=== PATIENT | male | born 1965 | race Caucasian/White ===

== ENCOUNTER 2024-03-02 14:52 | Outpatient (AMB) | payer OTHER, SELFPAY ==
--- NOTE | 2024-03-02 15:01 | A.OFFPC_ITS ---
Vital Signs 03/02/24 15:12 Height 6 ft 0.05 in Weight 348 lb 2 oz BMI 47.1 BP 132/68 Blood Pressure Location Rt brachial Position Sitting Respiration 16 Pulse 77 Pulse Source Pulse Oximeter Temp 98.6 F Temp Source Oral Pulse Oximetry (%) 96 Oxygen Delivery Method Room Air Intake Visit Reasons: SHIRIN from [facility] Intake Note: New patient visit Allergies naproxen Allergy (Severe, Verified 03/02/24 15:09) Anaphylaxis Medication List - Last Reconciled 03/02/24 by Farideh Salomon PA-C apixaban (Eliquis) 2.5 mg PO BID omeprazole 20 mg PO DAILY oxycodone 10 mg PO Q6H 28 days Tobacco use date assessed: 03/02/24 Dental Screening Dental Screen Date: 03/02/24 Did you have a dental visit in the last 12 months?: No Did you have a dental problem in the last 6 months where you did not have access to dental care?: No Was dental information given to patient?: Patient has dentist HPI SHIRIN from [facility] HPI Details Patient is a 59-year-old male who presents today to [facility]. He is transferring from [facility]. He has a significant past medical history of chronic pain, GERD, prehypertension, chronic anticoagulation, and prediabetes. He has no acute concerns today but recently did have his right knee replaced. Musculoskeletal: States that FRITZ has been continuing his controlled substance contract since he transferred from [facility] and they did his surgery. He states that [facility] was uncomfortable continuing his regimen after her doing it for a few months. He was started on this regimen of oxycodone 10 mg 4 times a day years ago by Dr. Mcnair. He was transferred to or as the patient once she left the practice. He states that now that his knee is replaced he would like to consider tapering off of this medication but his surgery was just a few weeks ago. -his lower legs have been a little swoll en since the hospitalization but have gotten better. He states that his socks indent in his feet feel a little puffy. No leg pain. No increased erythema. Compliant with his Eliquis. Endo: He states that while he was hospitalized his blood sugars were WNL. His last A1c was 6. Colonoscopy: did the registration and has to schedule this this fall. [facility] Medical History (Updated 03/02/24 @ 16:29 by Farideh Salomon PA-C) Trigger finger Severe obesity Rotator cuff syndrome Prothrombin gene mutation Prehypertension Prediabetes Paresthesia Osteoarthritis of acromioclavicular joint Obstructive sleep apnea syndrome Obesity Hypercoagulable state Hx of pulmonary embolus H/O deep venous thrombosis Gastroesophageal reflux disease Disorder of rotator cuff Concussion injury of body structure Chronic pain Surgical History (Updated 03/02/24 @ 15:36 by Gali Lewis CMA) Hx of arthroscopy of right knee Hx of eye surgery H/O excision of ganglion cyst Hx of shoulder surgery Hx of total knee replacement Family History (Updated 03/02/24 @ 15:38 by Gali Lewis CMA) Father Hx of CABG Heart attack Brother Peripheral vascular disease Recurrent deep vein thrombosis Social History (Updated 03/02/24 @ 15:38 by Gali Lewis CMA) Housing: House Patient Tobacco Use Status: Never used Tobacco e-Cigarette/Vaping Use: Never Used Second Hand Smoke Exposure: No service: Yes Current occupational status: disabled Cognitive needs: No Hearing needs: No Vision needs: Yes (glasses) Questionnaire PHQ-9 Over the last 2 weeks, how often have you been bothered by any of the following problems? 1. Little interest or pleasure in doing things: not at all 2. Feeling down, depressed, or hopeless: not at all 3. Trouble falling or staying asleep, or sleeping too much: not at all 4. Feeling tired or having little energy: not at all 5. Poor appetite or overeating: not at all 6. Feeling bad about yourself - or that you are a failure or have let yourself or your family down: not at all 7. Trouble concentrating on things, such as reading the newspaper or watching television: not at all 8. Moving or speaking so slowly that other people could have noticed. Or the opposite - being so fidgety or restless that you have been moving around a lot more than usual: not at all 9. Thoughts that you would be better off or of hurting yourself in some way: not at all Total score: 0 Depression Screening Interpretation: Negative Depression Screening Done: Yes 88182 - PHQ-9 Billing: Yes Source: Developed by Drs. Dano Dias, Radha MitchellSergey and colleagues, with an educational xander from [employer]. Thrive Questionnaire Date Thrive assessed: 03/02/24 I am a: Patient What is your living situation today?: I have a steady place to live Within the past 12 months, did the food you bought not last and you didn't have the money to get more?: Never true Within the past 12 months, did you worry whether your food would run out before you got money to buy more?: Never true Do you have trouble paying for medicines?: No Do you have trouble getting transportation to medical appointments?: No Do you have trouble paying your heating and electricity bill?: No Do you have trouble taking care of your child, family member or friend?: No Do you have trouble with day-to-day activities such as bathing, preparing meals, shopping, managing finances, etc.?: No Are you currently unemployed and looking for a job?: No Are you interested in more education?: No Please select the resources that you would like help with: None Currently or been in a relationship where the following occur: No concerns reported THRIVE Score: 0 AUDIT C Alcohol Use Questionnaire (AUDIT-C) 1. How often do you have a drink containing alcohol?: Monthly or less 2. How many drinks containing alcohol do you have on a typical day when you are drinking?: 1 or 2 Total Score: 1 Score Reviewed/Action Taken: Yes MARY-7 AMB Questionnaire MARY-7 Date MARY - 7 assessed: 03/02/24 Feeling nervous, anxious, or on edge: 0 = Not at all Not being able to stop or control worryin = Not at all Worrying too much about different things: 0 = Not at all Trouble relaxin = Not at all Being so restless that it is hard to sit still: 0 = Not at all Becoming easily annoyed or irritable: 0 = Not at all Feeling afraid as if something awful might happen: 0 = Not at all Total MARY-7 score (0-4 normal; 5-9 mild; 10-14 moderate; 15-21 severe): 0 Source: Developed by Drs. Dano Dias, Radha Mitchell, Sergey Pereyra and colleagues, with an educational xander from [employer]. MARY-7 Assessment Billing MARY-7 Assessment Tool: MARY-7 Assessment 77582 Physical exam (Primary Care) Vital Signs: Last Vital Signs Temp 98.6 F 03/02/24 15:12 Pulse 77 03/02/24 15:12 Resp 16 03/02/24 15:12 BP 132/68 03/02/24 15:12 Pulse Ox 96 03/02/24 15:12 Oxygen Delivery Method Room Air 03/02/24 15:12 BMI result Body Mass Index 47.1 BMI Assessment/Plan discussion: High BMI High, discussed plan: lifestyle, weight reduction and dietary Tobacco/Smoking Status: Tobacco use Status Tobacco use date assessed 03/02/24 03/02/24 15:17 Patient Tobacco Use Status Never used Tobacco 03/02/24 15:38 e-Cigarette/Vaping Use Never Used 03/02/24 15:38 PHQ-9: PHQ-9 Score PHQ-9: Total score 0 03/02/24 15:40 Depression Screening Interpretation: Negative Thrive Assessment: Date of Thrive Assessment Date Thrive assessed 03/02/24 03/02/24 15:40 Currently or been in a relationship where the following occur: No concerns reported Const Orientation/consciousness: patient oriented x3 HENMT Ears: hearing grossly normal bilaterally Neck Thyroid: Thyroid normal Lymphatic: no lymphadenopathy noted Resp Auscultation: clear to auscultation bilaterally Cardio Rate: regular rate Rhythm: regular rhythm Heart sounds: S1 normal heart sound present and S2 normal heart sound present GI Inspection: Yes normal to inspection Palpation (GI): Soft to palpation and Other GI palpation findings present (nontender, no cva tenderness) Skin General skin exam: no rashes or lesions noted Neuro General: patient oriented x3, gait normal and no focal motor deficits Extrem Other: 2+ pitting edema noted over the bilateral ankles. Calves nontender bilaterally. Assessment and Plan Assessment & Plan (1) Chronic pain: Code(s): G89.29 - Other chronic pain Qualifiers: Chronic pain type: chronic pain syndrome Qualified Code(s): G89.4 - Chronic pain syndrome Plan: We will continue current CSC. (2) Hypercoagulable state: Code(s): D68.59 - Other primary thrombophilia Plan: Continue Eliquis (3) Prediabetes: Code(s): R73.03 - Prediabetes Plan: Labs ordered. We will monitor. Discussed dietary changes. Advised to limit carbohydrate and sugar intake. (4) Prehypertension: Code(s): R03.0 - Elevated blood-pressure reading, without diagnosis of hypertension Plan: We will continue to monitor. (5) Lower leg edema: Code(s): R60.0 - Localized edema Plan: We will trial a short course of furosemide. We discussed risks and benefits and adverse effects of this medication. Orders: Orders Comprehensive [place]. Panel Fast Today D68.59 - Other primary thrombophilia, R03.0 - Elevated blood-pressure reading, without diagnosis of hypertension, R73.03 - Prediabetes Liver Panel Today D68.59 - Other primary thrombophilia, R03.0 - Elevated blood- pressure reading, without diagnosis of hypertension, R73.03 - Prediabetes, R79.89 - Other specified abnormal findings of blood chemistry TSH reflex Free T4 Today D68.59 - Other primary thrombophilia, R03.0 - Elevated blood-pressure reading, without diagnosis of hypertension, R73.03 - Prediabetes Hemoglobin A1c Today D68.59 - Other primary thrombophilia, R03.0 - Elevated blood-pressure reading, without diagnosis of hypertension, R73.03 - Prediabetes PSA, Ultra Sensitive Today D68.59 - Other primary thrombophilia, R03.0 - Elevated blood-pressure reading, without diagnosis of hypertension, R06.09 - Other forms of dyspnea, R73.03 - Prediabetes Medications: New oxycodone 10 mg PO Q6H 28 days 112 tabs 0RF G89.29 - Other chronic pain furosemide 20 mg PO DAILY 7 tabs 0RF Coding Level of Care Code Est Pt Level 4 (16304) Complex EM visit Add On G2211 Diagnoses Chronic pain syndrome G89.4 Chronic pain type: chronic pain syndrome Hypercoagulable state D68.59 Prediabetes R73.03 Prehypertension R03.0 Lower leg edema R60.0 Additional Codes MARY-7 Assessment Billing - MARY-7 Assessment Tool: MARY-7 Assessment [id number] ([id number])
[2024-03-02 15:12] VITALS: BP 132/68; PULSE 77; RESP 16; TEMP 37; O2SAT 96; BMI 47.1
== END 2024-03-02 16:12 | disposition home or self-care (01) ==
PROVIDERS: Visit Provider Physician Assistant
DX: G89.4 Chronic pain syndrome (principal); D68.59 Other primary thrombophilia; R73.03 Prediabetes; R03.0 Elevated blood-pressure reading, without diagnosis of hypertension; R60.0 Localized edema
CPT/HCPCS: 99214; G2211

== ENCOUNTER 2024-03-03 08:43 | Outpatient (REF) | payer OTHER, SELFPAY ==
[2024-03-03 11:43] LABS: Estimated Average Glucose 117 mg/dL; Hemoglobin A1c % 5.7 % (<6.0)
[2024-03-03 12:13] LABS: Alanine Aminotransferase 15 U/L (0-40); Alkaline Phosphatase 75 U/L (39-117); Anion Gap 12 (12-20); Aspartate Amino Transferase 15 U/L (5-37); Bilirubin Direct 0.2 mg/dL (0.0-0.5); Bilirubin Total 0.8 mg/dL (0.0-1.0); Blood Urea Nitrogen 26 mg/dL (9-16); Carbon Dioxide 26 mmol/L (22-29); Chloride 105 mmol/L (96-108); Estimated Glomerular Filt Rate > 60; Glucose Fasting 111 mg/dL (60-99); Potassium 4.1 mmol/L (3.3-5.1); Sodium 139 mmol/L (135-145); TSH reflex Free T4 2.18 uIU/mL (0.32-4.0); Total Protein 6.6 g/dL (6.5-8.0)
[2024-03-15 18:42] LABS: PSA, Ultra Sensitive 1.38 ng/mL
== END 2024-03-03 08:44 | disposition home or self-care (01) ==
LOC: HO.WFDLDS 08:43
PROVIDERS: Visit Provider Physician Assistant
DX: R73.03 Prediabetes (principal); R03.0 Elevated blood-pressure reading, without diagnosis of hypertension; D68.59 Other primary thrombophilia; R79.89 Other specified abnormal findings of blood chemistry; R06.09 Other forms of dyspnea; Z12.5 Encounter for screening for malignant neoplasm of prostate
CPT/HCPCS: 36415; 80053; 80076; 82248; 83036; 84153; 84443

== ENCOUNTER 2024-05-19 10:05 | Outpatient (AMB) | payer OTHER, SELFPAY ==
[2024-05-19 10:12] VITALS: BP 144/82; PULSE 72; O2SAT 99; BMI 46.7
--- NOTE | 2024-05-19 10:12 | A.OFFPC_ITS ---
Vital Signs 05/19/24 10:12 05/19/24 10:21 Height 6 ft 0.5 in Weight 349 lb BMI 46.7 BP 144/82 H 122/80 Blood Pressure Location Lt brachial Lt brachial Position Sitting Sitting Pulse 72 Pulse Source Pulse Oximeter Pulse Oximetry (%) 99 Oxygen Delivery Method Room Air Int[place] [facility] [place] Note: Follow up Regional Clinical Research Associate Required: No Allergies naproxen Allergy (Severe, Verified 05/19/24 10:12) Anaphylaxis Medication List - Last Reconciled 05/19/24 by Farideh Salomon PA-C apixaban (Eliquis) 2.5 mg PO BID 90 days furosemide 20 mg PO DAILY omeprazole 20 mg PO DAILY oxycodone 10 mg PO Q6H 28 days Tobacco use date assessed: 03/02/24 Dental Screening Dental Screen Date: 03/02/24 [place] [facility] [place]PI Details Patient is a 59-year-old male who presents today for a follow up. He has a significant past medical history of chronic pain, GERD, prehypertension, chronic anticoagulation, and prediabetes. He has no acute concerns today but recently did have his right knee replaced. He has been more active. CV: Blood pressure today in the office is 122/80. He has had his prehypertension and has tried to control it with diet. No chest pain or shortness on breath. Compliant with Eliquis. -He sees his chiropractor every 2 weeks and has his bp checked. Musculoskeletal: His knee is feeling better since his replacement. He is well managed with his current chronic pain management. He has been on this prescription and dosage for years. Endo: He states that while he was hospitalized his blood sugars were WNL. His last A1c was 5.7. Colonoscopy: did the registration and has to schedule this. [facility] Medical History (Updated 03/02/24 @ 16:29 by Farideh Salomon PA-C) Trigger finger Severe obesity Rotator cuff syndrome Prothrombin gene mutation Prehypertension Prediabetes Paresthesia Osteoarthritis of acromioclavicular joint Obstructive sleep apnea syndrome Obesity Hypercoagulable state Hx of pulmonary embolus H/O deep venous thrombosis Gastroesophageal reflux disease Disorder of rotator cuff Concussion injury of body structure Chronic pain Surgical History (Updated 03/02/24 @ 15:36 by Gali Lewis CMA) Hx of arthroscopy of right knee Hx of eye surgery H/O excision of ganglion cyst Hx of shoulder surgery Hx of total knee replacement Family History (Updated 03/02/24 @ 15:38 by Gali Lewis CMA) Father Hx of CABG Heart attack Brother Peripheral vascular disease Recurrent deep vein thrombosis Social History (Updated 03/02/24 @ 15:38 by Gali Lewis CMA) Housing: House Patient Tobacco Use Status: Never used Tobacco e-Cigarette/Vaping Use: Never Used Second Hand Smoke Exposure: No service: Yes Current occupational status: disabled Cognitive needs: No Hearing needs: No Vision needs: Yes (glasses) Questionnaire PHQ-9 Over the last 2 weeks, how often have you been bothered by any of the following problems? 1. Little interest or pleasure in doing things: not at all 2. Feeling down, depressed, or hopeless: not at all 3. Trouble falling or staying asleep, or sleeping too much: not at all 4. Feeling tired or having little energy: not at all 5. Poor appetite or overeating: not at all 6. Feeling bad about yourself - or that you are a failure or have let yourself or your family down: not at all 7. Trouble concentrating on things, such as reading the newspaper or watching television: not at all 8. Moving or speaking so slowly that other people could have noticed. Or the opposite - being so fidgety or restless that you have been moving around a lot more than usual: not at all 9. Thoughts that you would be better off or of hurting yourself in some way: not at all Total score: 0 Source: Developed by Drs. Dano Dias, Radha Mitchell, Sergey Pereyra and colleagues, with an educational xander from [employer]. Thrive Questionnaire Date Thrive assessed: 03/02/24 I am a: Patient What is your living situation today?: I have a steady place to live Within the past 12 months, did the food you bought not last and you didn't have the money to get more?: Never true Within the past 12 months, did you worry whether your food would run out before you got money to buy more?: Never true Do you have trouble paying for medicines?: No Do you have trouble getting transportation to medical appointments?: No Do you have trouble paying your heating and electricity bill?: No Do you have trouble taking care of your child, family member or friend?: No Do you have trouble with day-to-day activities such as bathing, preparing meals, shopping, managing finances, etc.?: No Are you currently unemployed and looking for a job?: No Are you interested in more education?: No Please select the resources that you would like help with: None Currently or been in a relationship where the following occur: No concerns reported THRIVE Score: 0 AUDIT C Alcohol Use Questionnaire (AUDIT-C) 1. How often do you have a drink containing alcohol?: Monthly or less 2. How many drinks containing alcohol do you have on a typical day when you are drinking?: 1 or 2 3. How often do you have six or more drinks on one occasion?: Never Total Score: 1 MARY-7 AMB Questionnaire MARY-7 Date MARY - 7 assessed: 03/02/24 Feeling nervous, anxious, or on edge: 0 = Not at all Not being able to stop or control worryin = Not at all Worrying too much about different things: 0 = Not at all Trouble relaxin = Not at all Being so restless that it is hard to sit still: 0 = Not at all Becoming easily annoyed or irritable: 0 = Not at all Feeling afraid as if something awful might happen: 0 = Not at all Total MARY-7 score (0-4 normal; 5-9 mild; 10-14 moderate; 15-21 severe): 0 Source: Developed by Drs. Dano Dias, Radha Mitchell, Sergey Pereyra and colleagues, with an educational xander from [employer]. Physical exam (Primary Care) Tobacco/Smoking Status: Tobacco use Status Tobacco use date assessed 03/02/24 03/02/24 15:17 Patient Tobacco Use Status Never used Tobacco 03/02/24 15:38 e-Cigarette/Vaping Use Never Used 03/02/24 15:38 Thrive Assessment: Date of Thrive Assessment Date Thrive assessed 03/02/24 03/02/24 15:40 Currently or been in a relationship where the following occur: No concerns reported Const Orientation/consciousness: patient oriented x3 HENMT Ears: hearing grossly normal bilaterally Neck Thyroid: Thyroid normal Lymphatic: no lymphadenopathy noted Resp Auscultation: clear to auscultation bilaterally Cardio Rate: regular rate Rhythm: regular rhythm Heart sounds: S1 normal heart sound present and S2 normal heart sound present GI Inspection: Yes normal to inspection Palpation (GI): Soft to palpation and Other GI palpation findings present (nontender, no cva tenderness) Auscultation: normoactive bowel sounds Rectal Exam - Male: Yes deferred Skin General skin exam: no rashes or lesions noted Neuro General: patient oriented x3, gait normal and no focal motor deficits Results Reviewed Results Reviewed: Laboratory Tests 03/03/24 08:46 Sodium 139 Potassium 4.1 Chloride 105 Carbon Dioxide 26 Anion Gap 12 BUN 26 H Creatinine 0.93 Estimated GFR > 60 Fasting Glucose 111 H Estimat Average Glucose 117 Hemoglobin A1c % 5.7 Calcium 9.0 Total Bilirubin 0.8 Direct Bilirubin 0.2 AST 15 ALT 15 Alkaline Phosphatase 75 Total Protein 6.6 Albumin 4.0 PSA Ultra-Sensitive 1.38 TSH 2.18 Coding Level of Care Code Est Pt Level 4 (88614) Complex EM visit Add On G2211 Diagnoses Hypercoagulable state D68.59 Prehypertension R03.0 Prediabetes R73.03 Chronic pain syndrome G89.4 Chronic pain type: chronic pain syndrome Assessment & Plan Assessment & Plan (1) Hypercoagulable state: Code(s): D68.59 - Other primary thrombophilia Category: Medical Plan: Continue on Eliquis (2) Prehypertension: Code(s): R03.0 - Elevated blood-pressure reading, without diagnosis of hypertension Category: Medical Plan: We will continue to monitor. Patient states that the weight is coming down now that he can move around more since getting his knee replaced. We did discuss possibly starting Wegovy to help him lose weight but he wants to wait on this. (3) Prediabetes: Code(s): R73.03 - Prediabetes Category: Medical Plan: A1c improved. (4) Chronic pain: Code(s): G89.29 - Other chronic pain Category: Medical Qualifiers: Chronic pain type: chronic pain syndrome Qualified Code(s): G89.4 - Chronic pain syndrome Plan: Continue oxycodone. Controlled substance contract signed today. Orders: Orders Lipid Panel Today D68.59 - Other primary thrombophilia, G89.4 - Chronic pain syndrome, R03.0 - Elevated blood-pressure reading, without diagnosis of hypertension, R73.03 - Prediabetes Complete Blood Count Auto Diff Today D68.59 - Other primary thrombophilia, G89.4 - Chronic pain syndrome, R03.0 - Elevated blood-pressure reading, without diagnosis of hypertension, R73.03 - Prediabetes Microalbumin, Random (w Creat) Today R03.0 - Elevated blood-pressure reading, without diagnosis of hypertension, R73.03 - Prediabetes Comprehensive [place]. Panel Fast Today D68.59 - Other primary thrombophilia, G89.4 - Chronic pain syndrome, R03.0 - Elevated blood-pressure reading, without diagnosis of hypertension, R73.03 - Prediabetes Hemoglobin A1c Today D68.59 - Other primary thrombophilia, G89.4 - Chronic pain syndrome, R03.0 - Elevated blood-pressure reading, without diagnosis of hypertension, R73.03 - Prediabetes
[2024-05-19 10:21] VITALS: BP 122/80
== END 2024-05-19 10:34 | disposition home or self-care (01) ==
PROVIDERS: Visit Provider Physician Assistant
DX: D68.59 Other primary thrombophilia (principal); R03.0 Elevated blood-pressure reading, without diagnosis of hypertension; R73.03 Prediabetes; G89.4 Chronic pain syndrome

== ENCOUNTER → 2024-05-19 10:05 | Outpatient (BNVA) | payer OTHER, SELFPAY | PROVIDERS: Visit Provider Physician Assistant | DX: D68.59 Other primary thrombophilia (principal); R03.0 Elevated blood-pressure reading, without diagnosis of hypertension; R73.03 Prediabetes; G89.4 Chronic pain syndrome | CPT/HCPCS: 99212 ==

== ENCOUNTER 2024-08-25 08:49 | Outpatient (AMB) | payer OTHER, SELFPAY ==
--- NOTE | 2024-08-25 09:02 | MHC.PC.OV ---
Vital Signs 08/25/24 09:07 Height 6 ft 0.5 in Weight 351 lb 6 oz BMI 47.0 BP 122/72 Blood Pressure Location Lt brachial Position Sitting Pulse 71 Pulse Source Pulse Oximeter Pulse Oximetry (%) 97 Oxygen Delivery Method Room Air Intake Visit Reasons: bp and prediabetes and csc Intake Note: Blood pressure follow up. Order Department Supervisor Required: No Allergies naproxen Allergy (Severe, Verified 08/25/24 09:05) Anaphylaxis Medication List - Last Reconciled 08/25/24 by Farideh Salomon PA-C amoxicillin 2,000 mg (4 x 500 mg) PO ONCE PRN 90 days apixaban (Eliquis) 2.5 mg PO BID 90 days celecoxib 200 mg PO DAILY furosemide 20 mg PO DAILY omeprazole 20 mg PO DAILY oxycodone 10 mg PO Q6H 28 days Tobacco use date assessed: 08/25/24 Dental Screening Dental Screen Date: 03/02/24 HPI bp and prediabetes and csc HPI Details Patient is a 59-year-old male who presents today for a follow up. He has a significant past medical history of chronic pain, GERD, prehypertension, chronic anticoagulation, royal on cpap and prediabetes. CV: Blood pressure today in the office is 122/72. He has had his prehypertension and has tried to control it with diet. No chest pain or shortness on breath. Compliant with Eliquis. -He sees his chiropractor every 2 weeks and has his bp checked. Musculoskeletal: His knee is feeling better since his right replacement. He is well managed with his current chronic pain management. He has been on this prescription and dosage for years. Contract signed today. Endo: His A1c today is 6.2. Colonoscopy: He is scheduled for this [facility] Medical History (Updated 08/25/24 @ 09:23 by Farideh Salomon PA-C) Trigger finger Severe obesity Rotator cuff syndrome Prothrombin gene mutation Prehypertension Prediabetes Paresthesia Osteoarthritis of acromioclavicular joint Obstructive sleep apnea syndrome Obesity Hypercoagulable state Hx of pulmonary embolus H/O deep venous thrombosis Gastroesophageal reflux disease Disorder of rotator cuff Concussion injury of body structure Chronic pain Surgical History (Updated 03/02/24 @ 15:36 by Gali Lewis CMA) Hx of arthroscopy of right knee Hx of eye surgery H/O excision of ganglion cyst Hx of shoulder surgery Hx of total knee replacement Family History (Updated 03/02/24 @ 15:38 by Gali Lewis CMA) Father Hx of CABG Heart attack Brother Peripheral vascular disease Recurrent deep vein thrombosis Social History (Updated 03/02/24 @ 15:38 by Gali Lewis CMA) Housing: House Patient Tobacco Use Status: Never used Tobacco e-Cigarette/Vaping Use: Never Used Second Hand Smoke Exposure: No service: Yes Current occupational status: disabled Cognitive needs: No Hearing needs: No Vision needs: Yes (glasses) Questionnaire PHQ-9 Over the last 2 weeks, how often have you been bothered by any of the following problems? 1. Little interest or pleasure in doing things: not at all 2. Feeling down, depressed, or hopeless: not at all 3. Trouble falling or staying asleep, or sleeping too much: not at all 4. Feeling tired or having little energy: not at all 5. Poor appetite or overeating: not at all 6. Feeling bad about yourself - or that you are a failure or have let yourself or your family down: not at all 7. Trouble concentrating on things, such as reading the newspaper or watching television: not at all 8. Moving or speaking so slowly that other people could have noticed. Or the opposite - being so fidgety or restless that you have been moving around a lot more than usual: not at all 9. Thoughts that you would be better off or of hurting yourself in some way: not at all Total score: 0 Depression Screening Interpretation: Negative Depression Screening Done: Yes 13385 - PHQ-9 Billing: Yes Source: Developed by Drs. Dano Dias, Radha Mitchell, Sergey Pereyra and colleagues, with an educational xander from [employer]. Thrive Questionnaire Date Thrive assessed: 08/18/24 I am a: Patient What is your living situation today?: I have a steady place to live Within the past 12 months, did the food you bought not last and you didn't have the money to get more?: Never true Within the past 12 months, did you worry whether your food would run out before you got money to buy more?: Never true Do you have trouble paying for medicines?: No Do you have trouble getting transportation to medical appointments?: No Do you have trouble paying your heating and electricity bill?: No Do you have trouble taking care of your child, family member or friend?: No Do you have trouble with day-to-day activities such as bathing, preparing meals, shopping, managing finances, etc.?: No Are you currently unemployed and looking for a job?: No Are you interested in more education?: No Please select the resources that you would like help with: None Currently or been in a relationship where the following occur: No concerns reported THRIVE Score: 0 AUDIT C Alcohol Use Questionnaire (AUDIT-C) 1. How often do you have a drink containing alcohol?: Monthly or less 2. How many drinks containing alcohol do you have on a typical day when you are drinking?: 1 or 2 3. How often do you have six or more drinks on one occasion?: Never Total Score: 1 Score Reviewed/Action Taken: Yes MARY-7 AMB Questionnaire MARY-7 Date MARY - 7 assessed: 03/02/24 Feeling nervous, anxious, or on edge: 0 = Not at all Not being able to stop or control worryin = Not at all Worrying too much about different things: 0 = Not at all Trouble relaxin = Not at all Being so restless that it is hard to sit still: 0 = Not at all Becoming easily annoyed or irritable: 0 = Not at all Feeling afraid as if something awful might happen: 0 = Not at all Total MARY-7 score (0-4 normal; 5-9 mild; 10-14 moderate; 15-21 severe): 0 Source: Developed by Drs. Daon Dias, Radha Mitchell, Sergey Pereyra and colleagues, with an educational xander from [employer]. MARY-7 Assessment Billing MARY-7 Assessment Tool: MARY-7 Assessment 19457 Physical exam (Primary Care) Vital Signs: Last Vital Signs Pulse 71 08/25/24 09:07 BP 122/72 08/25/24 09:07 Pulse Ox 97 08/25/24 09:07 Oxygen Delivery Method Room Air 08/25/24 09:07 BMI result Body Mass Index 47.0 Tobacco/Smoking Status: Tobacco use Status Tobacco use date assessed 08/25/24 08/25/24 09:14 Patient Tobacco Use Status Never used Tobacco 08/25/24 09:02 e-Cigarette/Vaping Use Never Used 08/25/24 09:02 PHQ-9: PHQ-9 Score PHQ-9: Total score 0 08/25/24 09:16 Depression Screening Interpretation: Negative Thrive Assessment: Date of Thrive Assessment Date Thrive assessed 08/18/24 08/25/24 09:02 Currently or been in a relationship where the following occur: No concerns reported Const Orientation/consciousness: patient oriented x3 HENMT Ears: hearing grossly normal bilaterally Neck Thyroid: Thyroid normal Lymphatic: no lymphadenopathy noted Resp Auscultation: clear to auscultation bilaterally Cardio Rate: regular rate Rhythm: regular rhythm Heart sounds: S1 normal heart sound present and S2 normal heart sound present GI Inspection: Yes normal to inspection Palpation (GI): Soft to palpation and Other GI palpation findings present (nontender, no cva tenderness) Auscultation: normoactive bowel sounds Rectal Exam - Male: Yes deferred Skin General skin exam: no rashes or lesions noted Neuro General: patient oriented x3, gait normal and no focal motor deficits Results Reviewed Results Reviewed: Laboratory Tests 03/03/24 08:46 Sodium 139 Potassium 4.1 Chloride 105 Carbon Dioxide 26 Anion Gap 12 Creatinine 0.93 Estimated GFR > 60 Estimat Average Glucose 117 Hemoglobin A1c % 5.7 Calcium 9.0 Total Bilirubin 0.8 Direct Bilirubin 0.2 AST 15 ALT 15 Alkaline Phosphatase 75 Total Protein 6.6 Albumin 4.0 PSA Ultra-Sensitive 1.38 TSH 2.18 Coding Level of Care Code Est Pt Level 4 (61622) Complex EM visit Add On G2211 Diagnoses ROYAL on CPAP G47.33 Hypercoagulable state D68.59 Prehypertension R03.0 Prediabetes R73.03 Chronic pain syndrome G89.4 Chronic pain type: chronic pain syndrome Additional Codes PHQ-9 - 40838 - PHQ-9 Billing: Yes ([id number]) MARY-7 Assessment Billing - MARY-7 Assessment Tool: MARY-7 Assessment 67787 ([id number]) Assessment & Plan Assessment & Plan (1) ROYAL on CPAP: Code(s): G47.33 - Obstructive sleep apnea (adult) (pediatric) Category: Medical Plan: Referral to sleep Medicine. He would like to discuss with someone a different type of sleep mask. (2) Hypercoagulable state: Code(s): D68.59 - Other primary thrombophilia Category: Medical Plan: Continue Eliquis (3) Prehypertension: Code(s): R03.0 - Elevated blood-pressure reading, without diagnosis of hypertension Category: Medical Plan: We will continue to monitor. He is working hard on diet and weight loss. We did discuss Wegovy at length today. He will let me know if he decides to try something like this. (4) Prediabetes: Code(s): R73.03 - Prediabetes Category: Medical Plan: We did discuss that his A1c increased and he is going to work on reducing carbohydrate and sugar intake. (5) Chronic pain: Code(s): G89.29 - Other chronic pain Category: Medical Qualifiers: Chronic pain type: chronic pain syndrome Qualified Code(s): G89.4 - Chronic pain syndrome Plan: Controlled substance contract signed. Orders: Referrals Sleep Medicine Referral G47.33 - Obstructive sleep apnea (adult) (pediatric)
[2024-08-25 09:07] VITALS: BP 122/72; PULSE 71; O2SAT 97; BMI 47.0
--- OUTSIDE RECORDS SUMMARY | 2024-08-25 09:16 | XMS_ITS | Continuity of Care Document ---
Author Organization [facility], [address] floor Address [address] [place] [address] Assessment No assessment recorded. Plan of Treatment Reminders Order Date Submit Date Provider Last Modified By Organization Details Last Modified Time Details Appointments NEW PATIENT 15 2024 09:00A M Babar Guerra MD Not available Not available Not available RECHECK 15 2024 11:00A Chandan Kumar PA-C Not available Not available Not available Lab None recorded . Referral None recorded . Procedures None recorded . Surgeries None recorded . Imaging None recorded . Medication Orders None recorded . Patient TargetsNo targets recorded. Patient InstructionsNo instructions recorded. Reason for Referral None Reported. Problems Name Problem SNOMED Code Status Onset Date Resolution Date Notes Provider Name and Address Organization Details Recorded Time Implantation of joint prosthesis Active 2012 Status : 'A'; Not Available [facility] 11[facility] Problem Notes None recorded. Procedures Surgical History Date Name Laterality Status Provider Name and Address Organization Details Recorded Time 5 Sports Shoulder 4&1 completed Russ Kumar PA-C [address], [place], [address], [facility] 08/18/2024 07:47:20 4 Sports Shoulder 4&1 completed Russ Kumar PA-C [address], [place], [address], [facility] 05/13/2024 14:35:50 4 Plantar Fascia Celestone Injection L/R completed Mai Freed PA-C [address], [place], [address], [facility] 11/12/2023 09:40:57 4 Sports Shoulder 4&1 completed Russ Kumar PA-C [address], [place], [address], [facility] 11/10/2023 18:50:18 Imaging Results None recorded. Procedure Notes None recorded. Medical Equipment None Reported. Allergies Allergen ID Allergen Name Allergen Category Reaction Reaction Severity Criticality Documentation Date Start Date Code Code System Note Provider Name and Address Organization Details Recorded Time 118115 naproxen medicatio n Not available Not available Not available 11/11/2023 7258 RxNorm KAYLIA L'HEUREUX [facility] 08:36:10 Medications Name Sig Start Date Stop Date Status Note LastModified by Organization Details LastModified Time celecoxib 200 mg capsule TAKE 1 CAPSULE BY MOUTH EVERY DAY active Not Available Not Available No t Available amoxicillin 500 mg tablet TAKE 4 TABLETS BY MOUTH ONCE NEEDED FOR DENTAL WORK ONE HOUR PRIOR TO PROCEDURE active Not Available Not Available No t Available lorazepam 0.5 mg tablet TAKE 1 TAB BY MOUTH ONCE NEEDED FOR ANXIETY (1 HOUR BEFORE FLYING & 2 HOURS AWAY FROM OXYCODONE ) active Not Available Not Available No t Available cephalexin 500 mg capsule TAKE 1 CAPSULE BY MOUTH FOUR TIMES A DAY FOR 10 DAYS 11/10 completed Not Available Not Available Not Available pseudoephed rine-guaife nesin ER 80-700 mg tablet,exte nded release Percocet 5-325MG Tablet 1-2 Q 4-6 Hours Prn 07/22 completed Statu s: 'Disc ontin ued'; Not Available Not Available Not Available polymyxin B sulfate 10,000 unit-trimet hoprim 1 mg/mL eye drops PLACE 1 DROP INTO THE LEFT EYE EVERY 6 HOURS FOR 7 DAYS. 11/10 completed Not Available Not Available Not Available docusate sodium 100 mg capsule TAKE 1 CAPSULE BY MOUTH TWO TIMES A DAY 05/26 completed Not Available Not Available Not Available gabapentin 300 mg capsule TAKE 1 CAPSULE BY MOUTH EVERY DAY AT BEDTIME FOR 30 DAYS active Not Available Not Available No t Available omeprazole 20 mg capsule,del ayed release TAKE 1 CAPSULE BY MOUTH EVERY DAY active Not Available Not Available No t Available mupirocin 2 % topical ointment APPLY 3 TIMES A DAY FOR 10 DAYS active Not Available Not Available No t Available furosemide 20 mg tablet 05/26 completed Not Available Not Available Not Available oxycodone 30 mg tablet TAKE 1/2 TO 1 TABLET BY MOUTH EVERY 4 HOURS NEEDED FOR PAIN 05/26 completed Not Available Not Available Not Available diazepam 10 mg tablet TAKE 1 TABLET BY MOUTH THREE TIMES A DAY FOR 7 DAYS 05/26 completed Not Available Not Available Not Available methylpredn isolone 4 mg tablets in a dose pack TAKE DIRECTED 11/10 completed Not Available Not Available Not Available hydromorpho ne 4 mg tablet TAKE 1 TABLET BY MOUTH EVERY 4 HOURS NEEDED FOR SEVERE PAIN 05/26 completed Not Available Not Available Not Available diazepam 5 mg tablet TAKE 1 TABLET BY MOUTH THREE TIMES A DAY NEEDED FOR MUSCLE SPASM 05/26 completed Not Available Not Available Not Available oxycodone 5 mg tablet TAKE 2 TABLETS BY MOUTH EVERY 6 HOURS NEEDED FOR PAIN 11/10 completed Not Available Not Available Not Available oxycodone 10 mg tablet TAKE 1 TABLET ORALLY EVERY 6 HOURS FOR 28 DAYS active Not Available Not Available No t Available oxycodone HCl-oxycodo ne-ASA as directed 1 TABLET Q 4 HOURS PRN PAIN DO NOT DIRVE WHILE ON THIS MED 07/22 completed Statu s: 'Disc ontin ued'; Not Available Not Available Not Available GaviLyte-G 236 gram-22.74 gram-6.74 gram-5.86 gram oral solution DRINK 8 OUNCES EVERY 10 MINUTES 05/26 completed Not Available Not Available Not Available Eliquis 2.5 mg tablet TAKE 1 TABLET BY MOUTH TWICE A DAY active Not Available Not Available No t Available Vitals Date Recorded Body height Provider Name an d Address Organization Details Last Updated DateTime 08/18/2024 182.88 cm DARIEL WEAVER [facility] 08/18/2024 08:53:28 Social History Question Answer Notes LastModified by Organizat ion Details LastModified Time Tobacco Smoking Status Never Smoker NOE gregory [place] - [place] [facility] 11/11/2023 08:37:15 What Is Your Level Of Alcohol Consumption? None Information not available 11/11/2023 What Is Your Relationship Status? [email or web address] Information not available 11/11/2023 Do You Use Any Illicit Or Recreational Drugs? No Information not available 11/11/2023 Do You Or Have You Ever Used Any Other Forms Of Tobacco Or Nicotine? No Information not available 11/11/2023 Sex: Unknown Functional Status None recorded. Mental Status None recorded. Family History Nothing Reported. Medical History Condition Response Coronary Artery Disease N Anxiety/Depression N Emphysema N COPD N Pacemaker N Vascular Disease N Gastrointestinal Disease N Autoimmune disease N Orthotics N Arthritis Y Blood Clot Y Acid Reflux (GERD) Y Cancer N Stroke N Rheumatoid Arthritis N Arrhythmia Y Fibromyalgia N Allergies/Hayfever N Thyroid Problems N Kidney/Bladder Problems N Anemia N Heart Attack (DC) N Diabetes N Bleeding Disorder N Seizures/Epilepsy N AIDS/HIV N Congestive Heart Failure (CHF) N Asthma N Peripheral Vascular Disease N Sleep Apnea Y Hepatitis N Heart Disease N Pulmonary Embolism N Hypertension N Osteoporosis N Past Encounters Encounter ID Performer Location Encounter Start Date Encounter Closed Date Diagnosis/Indication Diagnosis SNOMED-CT Code Diagnosis ICD10 Code Diagnosis Note [id number] [facility] [address] [facility] [place] [address] 08/18/2024 08:50:14 08/18/2024 16:48:53 Impingement syndrome of right shoulder region [id number] 29461 M75.41 Health Concerns Section Related Observation LastModified by Organization Detai ls LastModified Time None Recorded Concern Status LastModified by Organization Details LastModified Time None Recorded Payers Encounter Date Sequence Insurance Name Policy Number Policy Chacon Covered Member ID Chacon Member ID Guarantor Name 08/18/2024 1 [facility] - DOS ON OR AFTER 2022 - ONE CARE (MEDICARE REPLACEMENT/ADV ANTAGE - HMO) Zachery Arias [id number] Zachery Arias Notes Date Note Type Note Provider Name and Address Organization Details Recorded Time 08/18/2024 text/html I am seeing the patient today under the supervision of {{Asuncion Shannon} } who was available but who did not see the patient. Reason For Visit Patient comes to the office with know rotator cuff tendonitis. The patient has done well with conservative management for their {{right* Left}} shoulder pain. Has had increasing discomfort over the past several weeks without injury. Pain is generalized about the shoulder. Off and on discomfort is noted at night. Past Medical/Surgical History Current medications per intake sheet. Physical Findings The patient is well appearing, in no apparent distress, alert and oriented to person, place and time. Gait is symmetric. No significant swelling, warmth or erythema about either shoulder. There is mild tenderness to palpation about the shoulder. Active range of motion of the shoulder is near full with mild to moderate pain through mid range manipulations. 4/5 strength of the shoulder, but the rotator cuff seems to fire well. Good stability of the shoulder. Peripheral, vascular, lymphatic examination, skin, neurologic coordination, reflexes, sensation are within normal limits. Assessment Rotator cuff tendonitis of the {{right* Left}} shoulder. plan The patient has done well with conservative management in regards to the shoulder. Continued conservative management recommended. Moderating activities with the upper extremity recommended also. Injection was performed into the subacromial space. Injected 80mg of Kenalog and 8cc of 1/4% Marcaine under sterile conditions into the left shoulder subacromial space. Patient tolerated the injection well. Moderating activities with the upper extremity recommended. The patient will follow up prn. Russ Kumar PA-C [address] [place] [place] [address] [address], [place], [address], [facility] - [facility] 08/18/2024 16:48:52
== END 2024-08-25 09:35 | disposition home or self-care (01) ==
PROVIDERS: Visit Provider Physician Assistant
DX: G47.33 Obstructive sleep apnea (adult) (pediatric) (principal); D68.59 Other primary thrombophilia; R03.0 Elevated blood-pressure reading, without diagnosis of hypertension; R73.03 Prediabetes; G89.4 Chronic pain syndrome

== ENCOUNTER 2024-08-25 09:49 | Outpatient (REF) | payer OTHER, SELFPAY ==
[2024-08-25 11:12] LABS: MANUAL DIFF FLAG NO
[2024-08-25 11:21] LABS: Basophils Absolute Auto 0.1 X10*3/uL (0.0-0.2); Basophils Percent Auto 0.5 % (0-2); Eosinophils Absolute Auto 0.2 X10*3/uL (0.0-0.4); Eosinophils Percent Auto 2.1 % (0-4); Hemoglobin 16.4 g/dl (14.0-18.0); Imm Gran Abs Auto 0.06 X10*3/uL (0.00-0.03); Imm Gran Pct Auto 0.6 % (0.0-0.4); Lymphocytes Absolute Auto 1.4 X10*3/uL (1.2-4.9); Lymphocytes Percent Auto 13.4 % (20-40); Mean Corpuscular HGB Conc 32.8 g/dl (31.0-36.0); Mean Corpuscular Hemoglobin 28.7 pg (27.0-33.0); Mean Corpuscular Volume 87.6 fL (80.0-98.0); Mean Platelet Volume 9.7 fL (9.4-12.4); Monocytes Absolute Auto 0.7 X10*3/uL (0.1-1.2); Monocytes Percent Auto 6.7 % (2-11); Neutrophils Absolute Auto 8.1 x10*3/uL (2.0-8.3); Neutrophils Percent Auto 76.7 % (45-73); Platelet Count 280 X10*3/uL (160-400); Red Blood Count 5.71 X10*6/uL (4.60-5.80); Red Cell Distribution Width 13.2 % (11.0-16.0); White Blood Count 10.6 X10*3/uL (4.8-10.8)
[2024-08-25 12:40] LABS: Alanine Aminotransferase 31 U/L (0-40); Albumin Level 4.3 g/dL (3.5-5.0); Alkaline Phosphatase 83 U/L (39-117); Anion Gap 8 (12-20); Aspartate Amino Transferase 28 U/L (5-37); Bilirubin Total 1.4 mg/dL (0.0-1.0); Blood Urea Nitrogen 19 mg/dL (9-16); Calcium 9.1 mg/dL (8.4-10.2); Carbon Dioxide 29 mmol/L (22-29); Chloride 108 mmol/L (96-108); Cholesterol 151 mg/dL (<200); Estimated Glomerular Filt Rate > 60; Glucose Fasting 135 mg/dL (60-99); HDL Cholesterol 42 mg/dL (>40); LDL Cholesterol Calculated 98 mg/dL (<100); Potassium 4.3 mmol/L (3.3-5.1); Sodium 141 mmol/L (135-145); Total Protein 7.5 g/dL (6.5-8.0); Triglycerides 58 mg/dL (<150)
[2024-08-25 14:33] LABS: Creatinine Urine 144.78 mg/dL; Microalbum/Creatinine Ratio Ur 3.4 ug/mg cr (<30)
== END 2024-08-25 09:50 | disposition home or self-care (01) ==
LOC: HO.WFDLDS 09:49
PROVIDERS: Visit Provider Physician Assistant
DX: G47.33 Obstructive sleep apnea (adult) (pediatric) (principal); D68.59 Other primary thrombophilia; R03.0 Elevated blood-pressure reading, without diagnosis of hypertension; R73.03 Prediabetes; G89.4 Chronic pain syndrome; Z79.01 Long term (current) use of anticoagulants; Z99.89 Dependence on other enabling machines and devices
CPT/HCPCS: 36415; 80053; 80061; 82043; 82570; 83036; 85025; 96127; 99212

== ENCOUNTER 2024-09-19 09:01 | Outpatient (AMB) | payer OTHER, SELFPAY ==
[2024-09-19 09:03] VITALS: BP 136/72; PULSE 96; O2SAT 96; BMI 47.6
--- NOTE | 2024-09-19 09:03 | MHC.OFFVIS ---
Vital Signs 09/19/24 09:03 Height 6 ft 0.5 in Weight 356 lb BMI 47.6 BP 136/72 Blood Pressure Location Lt brachial Position Sitting Pulse 96 Pulse Source Pulse Oximeter Pulse Oximetry (%) 96 Oxygen Delivery Method Room Air Intake Visit Reasons: 08/26LVM+Let INP-ROYAL - Conf [employer] Required: No Accompanied by: Self / Same As Patient Allergies naproxen Allergy (Severe, Verified 09/19/24 09:05) Anaphylaxis HPI Comments Details: 59 year old male is referred to us by PCP for Sleep evaluation. Chhaya on phone: [employer] max press 25.0 EPAP min 10.0 Epap max 12.0 PS min 3.0 max 15.0 He has been on CPAP for over 10 years and has not been monitored. He goes to bed at 10pm to midnight, wakes up at 7:30am, with 4 bathroom breaks. He wakes up snoring and gasping for air when unable to use CPAP. He declines urology referral today. He takes magnesium daily, with taurine 50 mg BiD for constipation PRN. He had bilateral knee replacement with Dr. Galdamez, then a revision on R. Knee joint. He is always doing adventism projects around the house and with his cars and is active. His memory is good, he had a fall about 7 years ago with 2 PEs, now on Eliquis. His mood is good, he stays busy with his family. He monitors his BP today it is a bit elevated, he gets a cortisone injection 1x/ month in R. Hip. He has Gerd and uses 3 pillows to elevate his head when sleeping. [facility] Medical History Trigger finger Severe obesity Rotator cuff syndrome Prothrombin gene mutation Prehypertension Prediabetes Paresthesia Osteoarthritis of acromioclavicular joint Obstructive sleep apnea syndrome Obesity Hypercoagulable state Hx of pulmonary embolus H/O deep venous thrombosis Gastroesophageal reflux disease Disorder of rotator cuff Concussion injury of body structure Chronic pain Surgical History Hx of arthroscopy of right knee Hx of eye surgery H/O excision of ganglion cyst Hx of shoulder surgery Hx of total knee replacement Family History Father Hx of CABG Heart attack Brother Peripheral vascular disease Recurrent deep vein thrombosis Social History Housing: House Patient Tobacco Use Status: Never used Tobacco e-Cigarette/Vaping Use: Never Used Second Hand Smoke Exposure: No service: Yes Current occupational status: disabled Cognitive needs: No Hearing needs: No Vision needs: Yes (glasses) Review of Systems Const All systems reviewed & are unremarkable except as noted in HPI and below Physical Exam Vital Signs: Last Vital Signs Pulse 96 09/19/24 09:03 BP 136/72 09/19/24 09:03 Pulse Ox 96 09/19/24 09:03 Oxygen Delivery Method Room Air 09/19/24 09:03 BMI result Body Mass Index 47.6 Const General: cooperative, comfortable and no acute distress Nutritional Appearance: obese (BMI is 47.7) morbidly obese Orientation/consciousness: patient oriented x3 HEENT Face and sinus: Yes normal facial exam and Yes face symmetric Throat: Yes other ([place] Score of 4) Eyes Pupils: Equal, round and reactive pupils present Neck Neck: Yes full ROM Resp Effort & Inspection: normal respiratory effort and able to speak in complete sentences Neuro General: patient oriented x3 Cranial nerves: Yes CN's II-XII intact bilaterally, Yes Facial sensation intact/muscles of mastication intact, Yes Equal, round and reactive pupils present, Yes Normal accommodation reflex present, Yes Bilaterally intact EOM present, Yes Nystagmus not present, Yes Normal facial strength present, Yes Midline tongue present, Yes Ability to bilaterally rotate head present and Yes Ability to bilaterally elevate shoulders present Motor exam (neuro): 5/5 motor strength present throughout and Abnormal muscle tone present (Lower Extremity) Deep tendon reflexes (DTR's): Right triceps reflex intensity grade: 2+, Rt Biceps (C5, C6): 2+, Left biceps reflex intensity grade: 2+, Right brachioradialis reflex intensity grade: 2+, Left brachioradialis reflex intensity grade: 2+, Right patellar reflex intensity grade: 2+ and Left patellar reflex intensity grade: 2+ Psych Thought process: Normal thought process present Thought content: Normal thought content present Results Reviewed Results Reviewed: January 2024 [facility] Post Op note R. Total Knee Replacement 2013 L. knee Replacement Assessment & Plan Assessment & Plan (1) Fatigue due to sleep pattern disturbance: Code(s): R53.83 - Other fatigue; G47.9 - Sleep disorder, unspecified Category: Medical Plan Snoring HST to determine severity of ROYAL Fatigue R/O deficiencies with Labs B12/ Vit D / Homocysteine - MMA- Folate BMI is elevated Recommend weight management along with one of the [id number] if patient is responsive. Orders: Orders Comprehensive Met. Panel Today G47.9 - Sleep disorder, unspecified, R53.83 - Other fatigue Ferritin Today G47.9 - Sleep disorder, unspecified, R53.83 - Other fatigue IRON PROFILE Today G47.9 - Sleep disorder, unspecified, R53.83 - Other fatigue RT home sleep study Today R06.83 - Snoring Homocysteine Today G47.9 - Sleep disorder, unspecified, R53.83 - Other fatigue Methylmalonic Acid Today G47.9 - Sleep disorder, unspecified, R53.83 - Other fatigue Vitamin D 25-OH Total Today G47.9 - Sleep disorder, unspecified, R53.83 - Other fatigue Vitamin B12 and Folate Today G47.9 - Sleep disorder, unspecified, R53.83 - Other fatigue Patient Instructions: Sleep Hygiene: Sleep in a dark room, no devices in bed, limit fluids 2 hours prior to bedtime, may read in bed, and diffuse essential oils as needed. Weight Management: For meal prep and nutritional counseling. Recommend daily walking, or swimming at the [facility], with stretching and PT for strength building exercises as well as weight reduction, patient has HTN and h/o PEs now is Pre-diabetic with multiple cardiovascular risks. Nocturia, patient will monitor and f/u with PCP as needed. F/U in 3 months. Coding Level of Care Code New Pt Level 4 (33204) Complex EM visit Add On G2211 Diagnoses Fatigue due to sleep pattern disturbance R53.83; G47.9 Time Spent (min) 40 Comment Evaluation of Baseline ROYAL Sleep Questionnaire Difficulty falling asleep: No Number of arousals: 4 Snoring: Yes Witnessed apneas: Yes Gasping arousals: Yes Nocturia: Yes GERD: Yes Vivid dreams: Yes Acting out dreams: Yes Abnormal behavior in sleep: No Abnormal movements in sleep: No Morning headaches: No Excessive daytime sleepiness: No Daytime naps: No Restless legs: No Hallucinations: No Sleep paralysis: No Drop attacks: No Sleep Study: Yes (>11 years ago) CPAP: Yes
== END 2024-09-19 09:45 | disposition home or self-care (01) ==
PROVIDERS: PCP Physician Assistant; Visit Provider Physician Assistant Medical
DX: R53.83 Other fatigue (principal); G47.9 Sleep disorder, unspecified
CPT/HCPCS: 99204; G2211

== ENCOUNTER → 2024-09-19 09:01 | Outpatient (BNVA) | payer OTHER, SELFPAY | PROVIDERS: PCP Physician Assistant; Visit Provider Physician Assistant Medical | DX: R53.83 Other fatigue (principal); G47.9 Sleep disorder, unspecified | CPT/HCPCS: 99202 ==

== ENCOUNTER 2024-09-27 11:25 | Outpatient (REF) | payer OTHER, SELFPAY ==
[2024-09-27 15:03] LABS: Alanine Aminotransferase 40 U/L (0-40); Albumin Level 4.1 g/dL (3.5-5.0); Alkaline Phosphatase 72 U/L (39-117); Anion Gap 13 (12-20); Aspartate Amino Transferase 32 U/L (5-37); Bilirubin Total 1.3 mg/dL (0.0-1.0); Blood Urea Nitrogen 25 mg/dL (9-16); Calcium 9.4 mg/dL (8.4-10.2); Carbon Dioxide 23 mmol/L (22-29); Chloride 109 mmol/L (96-108); Estimated Glomerular Filt Rate > 60; Ferritin 178 ng/mL (20-250); Glucose Random 132 mg/dL (60-115); Iron 118 mcg/dL (45-160); Percent Iron Saturation 47 % (15-50); Potassium 4.2 mmol/L (3.3-5.1); Sodium 141 mmol/L (135-145); Total Iron Binding Capacity 253 mcg/dL (228-428); Total Protein 7.1 g/dL (6.5-8.0); Unsaturated Iron Binding 135 ug/dL; Vitamin D 25-OH Total 21.6 ng/mL (>30)
[2024-09-27 15:31] LABS: Folate 5.1 ng/mL (> or = 4.0); Vitamin B12 488 pg/mL (200-900)
[2024-09-30 08:44] LABS: Methylmalonic Acid 156 nmol/L (69-390)
== END 2024-09-27 11:26 | disposition home or self-care (01) ==
LOC: HO.WFDLDS 11:25
PROVIDERS: Visit Provider Physician Assistant Medical
DX: G47.9 Sleep disorder, unspecified (principal); R53.83 Other fatigue
CPT/HCPCS: 36415; 80053; 82306; 82607; 82728; 82746; 83540; 83921

== ENCOUNTER 2024-11-24 08:41 | Outpatient (AMB) | payer OTHER, SELFPAY ==
--- NOTE | 2024-11-24 08:55 | A.OFFPC_ITS ---
Intake Visit Reasons: prediabetes, htn Intake Note: Follow up prediabetes. Has seen [facility] pain managent and [facility] for hip pain. Allergies naproxen Allergy (Severe, Verified 11/24/24 08:56) Anaphylaxis Medication List - Last Reconciled 11/24/24 by Farideh Salomon PA-C amoxicillin 2,000 mg (4 x 500 mg) PO ONCE PRN 90 days apixaban (Eliquis) 2.5 mg PO BID 90 days celecoxib 200 mg PO DAILY cholecalciferol (vitamin D3) 50 mcg PO DAILY 90 days MDD 50 mcg omeprazole 20 mg PO DAILY oxycodone 10 mg PO Q6H 28 days Tobacco use date assessed: 08/25/24 Dental Screening Dental Screen Date: 03/02/24 HPI prediabetes, htn HPI Details Patient is a 59-year-old male who presents today for a follow up. He has a significant past medical history of chronic pain, GERD, prehypertension, chronic anticoagulation, vita on cpap and prediabetes. CV: Blood pressure today in the office is 136/72. He has had his prehypertension and has tried to control it with diet. No chest pain or shortness on breath. Compliant with Eliquis. -He sees his chiropractor every 2 weeks and has his bp checked. Musculoskeletal: His knee is feeling better since his right knee replacement. He is at [facility] pain management for right hip pain. He is well managed with his current chronic pain management. He has been on this prescription and dosage for years. Contract signed today. Neuro: sleep study is this afternoon Endo: His A1c today is 6.1. Colonoscopy: He is scheduled for this at [facility] but cancelled it due to knee surgery and states that he will call again to rebook PSA: Due this summer [facility] Medical History Trigger finger Severe obesity Rotator cuff syndrome Prothrombin gene mutation Prehypertension Prediabetes Paresthesia Osteoarthritis of acromioclavicular joint Obstructive sleep apnea syndrome Obesity Hypercoagulable state Hx of pulmonary embolus H/O deep venous thrombosis Gastroesophageal reflux disease Disorder of rotator cuff Concussion injury of body structure Chronic pain Surgical History Hx of arthroscopy of right knee Hx of eye surgery H/O excision of ganglion cyst Hx of shoulder surgery Hx of total knee replacement Family History Father Hx of CABG Heart attack Brother Peripheral vascular disease Recurrent deep vein thrombosis Social History Housing: House Patient Tobacco Use Status: Never used Tobacco e-Cigarette/Vaping Use: Never Used Second Hand Smoke Exposure: No service: Yes Current occupational status: disabled Cognitive needs: No Hearing needs: No Vision needs: Yes (glasses) Questionnaire Thrive Questionnaire Date Thrive assessed: 08/18/24 I am a: Patient What is your living situation today?: I have a steady place to live Within the past 12 months, did the food you bought not last and you didn't have the money to get more?: Never true Within the past 12 months, did you worry whether your food would run out before you got money to buy more?: Never true Do you have trouble paying for medicines?: No Do you have trouble getting transportation to medical appointments?: No Do you have trouble paying your heating and electricity bill?: No Do you have trouble taking care of your child, family member or friend?: No Do you have trouble with day-to-day activities such as bathing, preparing meals, shopping, managing finances, etc.?: No Are you currently unemployed and looking for a job?: No Are you interested in more education?: No Please select the resources that you would like help with: None Currently or been in a relationship where the following occur: No concerns reported THRIVE Score: 0 MARY-7 AMB Questionnaire MARY-7 Date MARY - 7 assessed: 03/02/24 Source: Developed by Drs. Dano Dias, Radha Mitchell, Sergey Pereyra and colleagues, with an educational xander from [employer]. Physical exam (Primary Care) Tobacco/Smoking Status: Tobacco use Status Tobacco use date assessed 08/25/24 11/24/24 08:57 Patient Tobacco Use Status Never used Tobacco 11/24/24 08:57 e-Cigarette/Vaping Use Never Used 11/24/24 08:57 Thrive Assessment: Date of Thrive Assessment Date Thrive assessed 08/18/24 11/24/24 08:57 Currently or been in a relationship where the following occur: No concerns reported Const Orientation/consciousness: patient oriented x3 HENMT Ears: hearing grossly normal bilaterally Neck Thyroid: Thyroid normal Lymphatic: no lymphadenopathy noted Resp Auscultation: clear to auscultation bilaterally Cardio Rate: regular rate Rhythm: regular rhythm Heart sounds: S1 normal heart sound present and S2 normal heart sound present GI Inspection: Yes normal to inspection Palpation (GI): Soft to palpation and Other GI palpation findings present (nontender, no cva tenderness) Auscultation: normoactive bowel sounds Rectal Exam - Male: Yes deferred Skin General skin exam: no rashes or lesions noted Neuro General: patient oriented x3, gait normal and no focal motor deficits Results AMB Hemoglobin A1c AMB Hemoglobin A1c 6.1 % Last Edit by Gali Lewis CMA on 11/24/24 10:31 Results Reviewed Results Reviewed: Laboratory Last Values Hgb A1c (Clinic) 6.1 % (4.0-6.0) H 11/24/24 10:30 Coding Level of Care Code Est Pt Level 4 (64669) Complex EM visit Add On G2211 Diagnoses Chronic pain syndrome G89.4 Chronic pain type: chronic pain syndrome Prediabetes R73.03 Prehypertension R03.0 Vitamin D insufficiency E55.9 Assessment & Plan Assessment & Plan (1) Chronic pain: Code(s): G89.29 - Other chronic pain Category: Medical Qualifiers: Chronic pain type: chronic pain syndrome Qualified Code(s): G89.4 - Chronic pain syndrome Plan: stable. well controlled (2) Prediabetes: Code(s): R73.03 - Prediabetes Category: Medical Plan: a1c stable discussed diet changes (3) Prehypertension: Code(s): R03.0 - Elevated blood-pressure reading, without diagnosis of hypertension Category: Medical Plan: wnl will continue to monitor (4) Vitamin D insufficiency: Code(s): E55.9 - Vitamin D deficiency, unspecified Category: Medical Plan: on vit d will recheck Orders: Orders Basic Metabolic Panel Today E55.9 - Vitamin D deficiency, unspecified, G89.4 - Chronic pain syndrome, R03.0 - Elevated blood-pressure reading, without diagnosis of hypertension, R73.03 - Prediabetes Liver Panel Today E55.9 - Vitamin D deficiency, unspecified, G89.4 - Chronic pain syndrome, R03.0 - Elevated blood-pressure reading, without diagnosis of hypertension, R73.03 - Prediabetes Microalbumin, Random (w Creat) Today E55.9 - Vitamin D deficiency, unspecified, G89.4 - Chronic pain syndrome, R03.0 - Elevated blood-pressure reading, without diagnosis of hypertension, R73.03 - Prediabetes Vitamin D 25-OH Total Today E55.9 - Vitamin D deficiency, unspecified B Type Natriuretic Peptide Today D68.59 - Other primary thrombophilia, G89.4 - Chronic pain syndrome, R03.0 - Elevated blood-pressure reading, without diagnosis of hypertension, R73.03 - Prediabetes Complete Blood Count Auto Diff Today E55.9 - Vitamin D deficiency, unspecified, G89.4 - Chronic pain syndrome, R03.0 - Elevated blood-pressure reading, without diagnosis of hypertension, R73.03 - Prediabetes Lipid Panel Today E55.9 - Vitamin D deficiency, unspecified, G89.4 - Chronic pain syndrome, R03.0 - Elevated blood-pressure reading, without diagnosis of hypertension, R73.03 - Prediabetes TSH reflex Free T4 Today E55.9 - Vitamin D deficiency, unspecified, G89.4 - Chronic pain syndrome, R03.0 - Elevated blood-pressure reading, without diagnosis of hypertension, R73.03 - Prediabetes Hemoglobin A1c Today E55.9 - Vitamin D deficiency, unspecified, G89.4 - Chronic pain syndrome, R03.0 - Elevated blood-pressure reading, without diagnosis of hypertension, R73.01 - Impaired fasting glucose, R73.03 - Prediabetes AMB Hemoglobin A1c Today R73.03 - Prediabetes
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
--- OUTSIDE RECORDS SUMMARY | 2024-11-24 09:18 | XMS_ITS ---
[facility] Unknown Encounters Encounter Type Encounter Reason Primary Diagnosis Location Date Ambulatory [facility] [place] 11/16/2023
== END 2024-11-24 09:24 | disposition home or self-care (01) ==
LOC: HO.HMCFM 08:42
PROVIDERS: PCP Physician Assistant; Visit Provider Physician Assistant
DX: G89.4 Chronic pain syndrome (principal); R73.03 Prediabetes; R03.0 Elevated blood-pressure reading, without diagnosis of hypertension; E55.9 Vitamin D deficiency, unspecified

== ENCOUNTER → 2024-11-24 13:00 | Outpatient (REF) | payer OTHER, SELFPAY ==
--- OUTSIDE RECORDS SUMMARY | 2024-11-24 15:54 | XMS_ITS | Continuity of Care Document ---
Author Organization [employer] [facility], NEELA Rendon 2nd floor Address [address] [place] [address] Care Team Providers Care Instrumental Musician Name Role Phone YULISA JULIO Primary Care Provider [phone] Assessment No assessment recorded. Plan of Treatment Reminders Order Date Submit Date Provider Last Modified By Organization Details Last Modified Time Details Appointments RECHECK 15 2024 10:30A M Russ Kumar PA-C Not available Not available Not [...] Active 2012 Status : 'A'; Not Available [facility] 4 11:27:42 Problem Notes None recorded. Procedures Surgical History Date Name Laterality Status Provider Name and Address Organization Details Recorded Time 5 Sports Shoulder 4&1 completed Russ Kumar PA-C [address] [facility][note 3], [place], [address], [facility] 11/23/2024 07:43:52 5 Trigger Finger Kenalog Injection completed Babar Guerra MD [address], [place], [address], [facility] 09/05/2024 09:19:28 5 Sports Shoulder 4&1 completed Russ Kumar PA-C [address], [place], [address], [facility] 08/18/2024 07:47:20 4 Sports Shoulder 4&1 completed Russ Kumar PA-C [address] [facility][note 3], [place], [address], [facility] 05/13/2024 14:35:50 4 Plantar Fascia Celestone Injection L/R completed Mai Freed PA-C [address], [place], [address], [facility] 11/12/2023 09:40:57 4 Sports Shoulder 4&1 completed Russ Kumar PA-C [address] [facility][note 3], [place], [address], [facility] 11/10/2023 18:50:18 Imaging Results None recorded. Procedure Notes None recorded. Medical Equipment None Reported. Allergies Allergen ID Allergen Name Allergen Category Reaction Reaction Severity Criticality Documentation Date Start Date Code Code System Note Provider Name and Address Organization Details Recorded Time [id number] naproxen medicatio n Not available Not available Not available 11/11/2023 7258 RxNorm KAYLIA L'HEUREUX [facility] 4 08:36:10 Medications Name Sig Start Date [...] Details Last Updated DateTime 11/23/2024 180.34 cm DRAIEL COR[facility]WADETESS[facility]ina [facility] 11/23/2024 10:52:16 Social History Question Answer Notes LastModified by Organizat ion Details LastModified Time Tobacco Smoking Status Never Smoker NOE gregory [place] [facility] 11/11/2023 08:37:15 What Is Your Level [...] Kidney/Bladder Problems N Anemia N Heart Attack ([place]) N Diabetes N Bleeding Disorder N Seizures/Epilepsy N AIDS/HIV N Congestive Heart Failure (CHF) N Asthma N Peripheral Vascular Disease N Sleep Apnea Y Hepatitis N Heart Disease N Pulmonary Embolism N Hypertension N Osteoporosis N Past Encounters Encounter ID Performer Location Encounter Start Date Encounter Closed Date Diagnosis/Indication Diagnosis SNOMED-CT Code Diagnosis ICD10 Code Diagnosis Note [id number] [facility] 2nd [address] [place] [address] 11/23/2024 10:48:32 11/24/2024 14:13:48 Pain of right shoulder joint [id number] 4036152 M25.511 Health Concerns Section Related Observation LastModified by Organization Detai ls LastModified Time None Recorded Concern Status LastModified by Organization Details LastModified Time None Recorded Payers Encounter Date Sequence Insurance Name Policy Number Policy Chacon Covered Member ID Chacon Member ID Guarantor Name 11/23/2024 1 [facility] - DOS ON OR AFTER 2022 - ONE CARE (MEDICARE REPLACEMENT/ADV ANTAGE - HMO) Zachery Arias [id number] Zachery Arias Notes Date Note Type Note Provider Name and Address Organization Details Recorded Time 11/23/2024 text/html I am seeing the patient today under the supervision of {{Bindu* Mirtha} } who was available but who did [...] follow up prn. Russ Kumar PA-C [address] [facility] [address], [place], [address], [facility] 11/24/2024 14:13:46
== END ==
LOC: HO.SL 13:00
PROVIDERS: PCP Physician Assistant; Visit Provider Physician Assistant Medical
DX: G47.19 Other hypersomnia (principal); G89.4 Chronic pain syndrome; R73.03 Prediabetes; R03.0 Elevated blood-pressure reading, without diagnosis of hypertension; E55.9 Vitamin D deficiency, unspecified
CPT/HCPCS: 83036; 95806; 99212

== ENCOUNTER → 2024-11-25 13:26 | Outpatient (BNV) | payer OTHER, SELFPAY | PROVIDERS: PCP Physician Assistant; Visit Provider Psychiatry & Neurology Neurology | DX: G47.33 Obstructive sleep apnea (adult) (pediatric) (principal) | CPT/HCPCS: 95806 ==

== ENCOUNTER 2025-03-17 10:11 | Outpatient (REF) | payer OTHER, SELFPAY ==
--- OUTSIDE RECORDS SUMMARY | 2025-03-17 10:14 | XMS_ITS ---
Author Name [facility] Organization Unknown Encounters Encounter Type Encounter Reason Primary Diagnosis Location Date Ambulatory [facility] 11/16/2023
[2025-03-17 11:33] LABS: MANUAL DIFF FLAG NO
[2025-03-17 11:43] LABS: Hematocrit 47.3 % (42.0-52.0); Hemoglobin 15.3 g/dl (14.0-18.0); Imm Gran Abs Auto 0.06 X10*3/uL (0.00-0.03); Imm Gran Pct Auto 0.5 % (0.0-0.4); Lymphocytes Absolute Auto 1.3 X10*3/uL (1.2-4.9); Mean Corpuscular HGB Conc 32.3 g/dl (31.0-36.0); Mean Corpuscular Hemoglobin 28.0 pg (27.0-33.0); Mean Corpuscular Volume 86.6 fL (80.0-98.0); NRBC Abs Auto 0.000 X10*3/uL (0.0-0.012); NRBC Pct Auto 0.0 /100WBC (0.0-0.2); Platelet Count 268 X10*3/uL (160-400); Red Blood Count 5.46 X10*6/uL (4.60-5.80); White Blood Count 11.4 X10*3/uL (4.8-10.8)
[2025-03-17 12:06] LABS: B Type Natriuretic Peptide 72 pg/mL (<100)
[2025-03-17 12:07] LABS: Hemoglobin A1C 178.6597 umol/L; Total Hemoglobin (HGBA1C) 3851.6252 umol/L
[2025-03-17 12:10] LABS: Alanine Aminotransferase 33 U/L (0-40); Albumin Level 4.2 g/dL (3.5-5.0); Alkaline Phosphatase 81 U/L (39-117); Anion Gap 12 (12-20); Aspartate Amino Transferase 23 U/L (5-37); Blood Urea Nitrogen 21 mg/dL (9-16); Calcium 8.8 mg/dL (8.4-10.2); Carbon Dioxide 26 mmol/L (22-29); Chloride 106 mmol/L (96-108); Cholesterol 129 mg/dL (<200); Estimated Glomerular Filt Rate > 60; HDL Cholesterol 37 mg/dL (>40); Potassium 3.8 mmol/L (3.3-5.1); Sodium 140 mmol/L (135-145); Total Protein 6.7 g/dL (6.5-8.0); Triglycerides 49 mg/dL (<150)
[2025-03-17 15:35] LABS: Microalbum/Creatinine Ratio Ur 3.8 ug/mg cr (<30)
[2025-03-18 08:33] LABS: Lyme Abs Screen <0.90 index
== END 2025-03-17 10:12 | disposition home or self-care (01) ==
LOC: HO.WFDLDS 10:11
PROVIDERS: Physician Assistant Medical; Visit Provider Physician Assistant
DX: Z11.3 Encounter for screening for infections with a predominantly sexual mode of transmission (principal); Z13.6 Encounter for screening for cardiovascular disorders; R73.03 Prediabetes; G89.4 Chronic pain syndrome; G47.9 Sleep disorder, unspecified; E55.9 Vitamin D deficiency, unspecified; D68.59 Other primary thrombophilia; R03.0 Elevated blood-pressure reading, without diagnosis of hypertension; R53.83 Other fatigue
CPT/HCPCS: 36415; 80048; 80061; 80076; 82043; 82306; 82570; 83036; 83090; 83880; 84443; 85025; 86617; 86618

== ENCOUNTER 2025-03-23 08:29 | Outpatient (AMB) | payer OTHER, SELFPAY ==
--- NOTE | 2025-03-23 08:37 | MHC.PC.OV ---
Vital Signs 03/23/25 08:41 03/23/25 08:48 Height 5 ft 11 in Weight 335 lb 2 oz BMI 46.7 BP 144/65 H 138/76 Blood Pressure Location Lt brachial Lt brachial Position Sitting Respiration 16 Pulse 71 Pulse Source Pulse Oximeter Temp 98 F Temp Source Oral Pulse Oximetry (%) 97 Oxygen Delivery Method Room Air Intake Visit Reasons: months meds Intake Note: patient here for follow up on medication Tack Cleaner Required: No Allergies naproxen Allergy (Severe, Verified 03/23/25 08:40) Anaphylaxis celecoxib (From Celebrex) Allergy (Intermediate, Verified 03/23/25 08:40) Swelling Medication List - Last Reconciled 03/23/25 by Farideh Salomon PA-C amoxicillin 2,000 mg (4 x 500 mg) PO ONCE PRN 90 days apixaban (Eliquis) 2.5 mg PO BID 90 days cholecalciferol (vitamin D3) 50 mcg PO DAILY 90 days MDD 50 mcg omeprazole 20 mg PO DAILY oxycodone 10 mg PO Q6H 28 days Tobacco use date assessed: 03/23/25 Dental Screening Dental Screen Date: 03/23/25 Did you have a dental visit in the last 12 months?: Yes Did you have a dental problem in the last 6 months where you did not have access to dental care?: No Was dental information given to patient?: Patient has dentist HPI months meds HPI Details Patient is a 60-year-old male who presents today for a follow up. He has a significant past medical history of chronic pain, GERD, prehypertension, chronic anticoagulation, vita on cpap and prediabetes. CV: Blood pressure today in the office is 138/76. He has had his prehypertension and has tried to control it with diet. No chest pain or shortness on breath. Compliant with Eliquis. -He sees his chiropractor every 2 weeks and has his bp checked. Musculoskeletal: His knee is feeling better since his right knee replacement. He is at [facility] pain [facility] for right hip pain. He is well managed with his current chronic pain management. He was on celebrex and had swelling as a reaction in February and increase in pain which developed similar to how he reactive to naproxen. Since he stopped this medication the swelling has significantly improved and he is getting back increase joint movement. He is finally feeling better. He states he has lost 20 lb with removing Celebrex from his prescriptions. He is now only on oxycodone for pain. He has been on this prescription and dosage for years. Contract UTD Neuro: following for vita and on cpap. Endo: His most recent A1c is 6.4. He states he was eating more ice cream. Colonoscopy: He was [place] [facility] [place] canceled. will do cologuard PSA: Due [facility] Medical History Trigger finger Severe obesity Rotator cuff syndrome Prothrombin gene mutation Prehypertension Prediabetes Paresthesia Osteoarthritis of acromioclavicular joint Obstructive sleep apnea syndrome Obesity Hypercoagulable state Hx of pulmonary embolus H/O deep venous thrombosis Gastroesophageal reflux disease Disorder of rotator cuff Concussion injury of body structure Chronic pain Surgical History Hx of arthroscopy of right knee Hx of eye surgery H/O excision of ganglion cyst Hx of shoulder surgery Hx of total knee replacement Family History Father Hx of CABG Heart attack Brother Peripheral vascular disease Recurrent deep vein thrombosis Social History Housing: House Patient Tobacco Use Status: Never used Tobacco e-Cigarette/Vaping Use: Never Used Second Hand Smoke Exposure: No service: Yes Current occupational status: disabled Cognitive needs: No Hearing needs: No Vision needs: Yes (glasses) Questionnaire Thrive Questionnaire Date Thrive assessed: 08/18/24 I am a: Patient What is your living situation today?: I have a steady place to live Within the past 12 months, did the food you bought not last and you didn't have the money to get more?: Never true Within the past 12 months, did you worry whether your food would run out before you got money to buy more?: Never true Do you have trouble paying for medicines?: No Do you have trouble getting transportation to medical appointments?: No Do you have trouble paying your heating and electricity bill?: No Do you have trouble taking care of your child, family member or friend?: No Do you have trouble with day-to-day activities such as bathing, preparing meals, shopping, managing finances, etc.?: No Are you currently unemployed and looking for a job?: No Are you interested in more education?: No Please select the resources that you would like help with: None Currently or been in a relationship where the following occur: No concerns reported THRIVE Score: 0 MARY-7 AMB Questionnaire MARY-7 Date MARY - 7 assessed: 03/02/24 Source: Developed by Drs. Dano Dias, Radha Mitchell, Sergey Pereyra and colleagues, with an educational xander from [employer]. Physical exam (Primary Care) Tobacco/Smoking Status: Tobacco use Status Tobacco use date assessed 08/25/24 11/24/24 08:57 Patient Tobacco Use Status Never used Tobacco 11/24/24 08:57 e-Cigarette/Vaping Use Never Used 11/24/24 08:57 Thrive Assessment: Date of Thrive Assessment Date Thrive assessed 08/18/24 11/24/24 08:57 Currently or been in a relationship where the following occur: No concerns reported Const Orientation/consciousness: patient oriented x3 HENMT Ears: hearing grossly normal bilaterally Neck Thyroid: Thyroid normal Lymphatic: no lymphadenopathy noted Resp Auscultation: clear to auscultation bilaterally Cardio Rate: regular rate Rhythm: regular rhythm Heart sounds: S1 normal heart sound present and S2 normal heart sound present GI Inspection: Yes normal to inspection Palpation (GI): Soft to palpation and Other GI palpation findings present (nontender, no cva tenderness) Auscultation: normoactive bowel sounds Rectal Exam - Male: Yes deferred Skin General skin exam: no rashes or lesions noted Neuro General: patient oriented x3, gait normal and no focal motor deficits Results Reviewed Results Reviewed: Laboratory Tests 11/24/24 03/17/25 03/17/25 10:30 10:14 10:21 WBC 11.4 H RBC 5.46 Hgb 15.3 Hct 47.3 MCV 86.6 MCH 28.0 MCHC 32.3 RDW 13.4 Plt Count 268 Sodium 140 Potassium 3.8 Chloride 106 Carbon Dioxide 26 Anion Gap 12 BUN 21 H Creatinine 0.90 Estimated GFR > 60 Random Glucose 146 H Hgb A1c (Clinic) 6.1 H Hemoglobin A1c % 6.4 H Calcium 8.8 D Total Bilirubin 1.4 H Direct Bilirubin 0.4 AST 23 ALT 33 Alkaline Phosphatase 81 B-Natriuretic Peptide 72 Total Protein 6.7 Albumin 4.2 Triglycerides 49 Cholesterol 129 LDL Cholesterol, Calc 83 HDL Cholesterol 37 L 25-OH Vitamin D Total 24.5 L TSH 1.21 Microalb/Creat Ratio 3.8 Lyme Screen IgG & IgM <0.90 Coding Level of Care Code Est Pt Level 4 (15212) Complex EM visit Add On G2211 Diagnoses Prediabetes R73.03 Vitamin D insufficiency E55.9 Prehypertension R03.0 Chronic pain syndrome G89.4 Chronic pain type: chronic pain syndrome Leukocytosis D72.829 Assessment & Plan Assessment & Plan (1) Prediabetes: Code(s): R73.03 - Prediabetes Category: Medical Plan: We did review that his A1c got worse and he is closer to being a diabetic (2) Vitamin D insufficiency: Code(s): E55.9 - Vitamin D deficiency, unspecified Category: Medical Plan: Start vitamin-D supplement (3) Prehypertension: Code(s): R03.0 - Elevated blood-pressure reading, without diagnosis of hypertension Category: Medical Plan: will continue to monitor bp in three months (4) Chronic pain: Code(s): G89.29 - Other chronic pain Category: Medical Qualifiers: Chronic pain type: chronic pain syndrome Qualified Code(s): G89.4 - Chronic pain syndrome Plan: Continue oxycodone q.6 hours (5) Leukocytosis: Code(s): D72.829 - Elevated white blood cell count, unspecified Plan: I will recheck CBC Orders: Orders Complete Blood Count Auto Diff Today E55.9 - Vitamin D deficiency, unspecified, G89.4 - Chronic pain syndrome, R03.0 - Elevated blood-pressure reading, without diagnosis of hypertension, R73.03 - Prediabetes Prostate Specific Antigen Scr Today E55.9 - Vitamin D deficiency, unspecified, G89.4 - Chronic pain syndrome, R03.0 - Elevated blood-pressure reading, without diagnosis of hypertension, R73.03 - Prediabetes, Z01.89 - Encounter for other specified special examinations Hemoglobin A1c Today E55.9 - Vitamin D deficiency, unspecified, G89.4 - Chronic pain syndrome, R03.0 - Elevated blood-pressure reading, without diagnosis of hypertension, R73.01 - Impaired fasting glucose, R73.03 - Prediabetes Comprehensive [place]. Panel Fast Today E55.9 - Vitamin D deficiency, unspecified, G89.4 - Chronic pain syndrome, R03.0 - Elevated blood-pressure reading, without diagnosis of hypertension, R73.03 - Prediabetes Referrals Cologuard Test Z12.11 - Encounter for screening for malignant neoplasm of colon Medications: Refilled cholecalciferol (vitamin D3) Take one tablet by mouth daily. 50 mcg PO DAILY 90 tabs 0RF insufficient levels of Vitamin D 90 days MDD 50 mcg E55.9 - Vitamin D deficiency, unspecified
[2025-03-23 08:41] VITALS: BP 144/65; PULSE 71; RESP 16; TEMP 36.6; O2SAT 97; BMI 46.7
[2025-03-23 08:48] VITALS: BP 138/76
== END 2025-03-23 09:01 | disposition home or self-care (01) ==
LOC: HO.HMCFM 08:34
PROVIDERS: PCP Physician Assistant; Visit Provider Physician Assistant
DX: R73.03 Prediabetes (principal); E55.9 Vitamin D deficiency, unspecified; R03.0 Elevated blood-pressure reading, without diagnosis of hypertension; G89.4 Chronic pain syndrome; D72.829 Elevated white blood cell count, unspecified

== ENCOUNTER → 2025-03-23 08:29 | Outpatient (BNVA) | payer OTHER, SELFPAY | PROVIDERS: PCP Physician Assistant; Visit Provider Physician Assistant | DX: K21.9 Gastro-esophageal reflux disease without esophagitis (principal); G47.33 Obstructive sleep apnea (adult) (pediatric); E55.9 Vitamin D deficiency, unspecified; G89.4 Chronic pain syndrome; D72.829 Elevated white blood cell count, unspecified; R73.03 Prediabetes; Z79.01 Long term (current) use of anticoagulants; Z99.89 Dependence on other enabling machines and devices | CPT/HCPCS: 99212 ==

== ENCOUNTER 2025-04-07 09:44 | Outpatient (AMB) | payer OTHER, SELFPAY ==
--- NOTE | 2025-04-07 09:48 | A.OFFPC_ITS ---
Vital Signs 04/07/25 09:52 Height 5 ft 11 in Weight 338 lb BMI 47.1 BP 136/74 Blood Pressure Location Rt brachial Position Sitting Respiration 16 Pulse 76 Pulse Source Pulse Oximeter Temp 98.1 F Temp Source Temporal Artery Scan Pulse Oximetry (%) 96 Oxygen Delivery Method Room Air Intake Visit Reasons: suture removal Intake Note: Zachery presents in the office today for removal of sutures from his left calf. Allergies naproxen Allergy (Severe, Verified 04/07/25 09:51) Anaphylaxis celecoxib (From Celebrex) Allergy (Intermediate, Verified 04/07/25 09:51) Swelling Tobacco use date assessed: 04/07/25 Dental Screening Dental Screen Date: 04/07/25 Did you have a dental visit in the last 12 months?: Yes Did you have a dental problem in the last 6 months where you did not have access to dental care?: No Was dental information given to patient?: Patient has dentist HPI HPI Comments History of Present Illness Details History of Present Illness - The patient is a 60 year old male pres enting with a suture removal and wound assessment for L calf laceration. - Laceration from clipping an exhaust pi pe, 10 days ago. - Initial severe bleeding controlled wit h two tourniquets. - Suturing done at [facility]; had recent tetanus shot. - No fever, chills, or drainage. - Reported swelling and pressure in the leg post-injury. 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 - History of 16 surgeries, bilateral kne e replacements, and right knee prosthesis loosening. - Anticipates a shoulder replacement. - Wound left uncovered for evaluation to day. Review of Systems - General: Denies fever, chills. - Musculoskeletal: Reports history of bi lateral knee replacements and awaiting shoulder replacement. - Integumentary: Denies drainage from ca lf laceration. Physical Exam Left lateral lower leg, 4 sutures removed, edges well approx. No signs of infection. Cleansed, 6 steristrips applied. Pt tolerated well. Discussion Notes I discussed with the patient the removal of sutures for the calf laceration and the application of Steri-Strips to reinforce the wound and allow for healing, assuring that the slightly open edges noted were fragile. I instructed him to keep the wound covered, especially when there is a possibility of trauma to the area. I highlighted the healing process, informing him to expect the Steri- Strips to fall off naturally within 10 days. I advised him to monitor for any signs of redness, new bleeding, or discharge, and to return if they occur. I reassured him about the overall state of his condition, emphasizing that there are no new complications observed during this visit. Patient was given time to ask questions. All questions were answered to their satisfaction. Assessment and Plan 1. Laceration of the calf, L - Steri-Strips applied. - Maintain wound coverage. - Monitor for infection signs. Patient Instructions - Keep the wound covered to protect from injury. - Showering is fine; use dressings if ne cessary to prevent any impact. - If redness, increased bleeding, or any discharge occurs, seek medical attention immediately. - Monitor Steri-Strips; they should natu rally fall off in about 10 days. Consent Patient was informed and verbally consented to the use of an ambient scribe for clinic note documentation during this visit. [facility] Medical History Trigger finger Severe obesity Rotator cuff syndrome Prothrombin gene mutation Prehypertension Prediabetes Paresthesia Osteoarthritis of acromioclavicular joint Obstructive sleep apnea syndrome Obesity Hypercoagulable state Hx of pulmonary embolus H/O deep venous thrombosis Gastroesophageal reflux disease Disorder of rotator cuff Concussion injury of body structure Chronic pain Surgical History Hx of arthroscopy of right knee Hx of eye surgery H/O excision of ganglion cyst Hx of shoulder surgery Hx of total knee replacement Family History Father Hx of CABG Heart attack Brother Peripheral vascular disease Recurrent deep vein thrombosis Social History (Updated 04/07/25 @ 09:52 by Jayne Downey MA) Housing: House Alcohol intake: never Patient Tobacco Use Status: Never used Tobacco e-Cigarette/Vaping Use: Never Used Second Hand Smoke Exposure: No Use of substances other than those prescribed or required for medical reasons: No service: No Current occupational status: disabled Current occupational exposures/hazards: No Cognitive needs: No Hearing needs: No Vision needs: Yes (glasses) Questionnaire Thrive Questionnaire Date Thrive assessed: 08/18/24 I am a: Patient What is your living situation today?: I have a steady place to live Within the past 12 months, did the food you bought not last and you didn't have the money to get more?: Never true Within the past 12 months, did you worry whether your food would run out before you got money to buy more?: Never true Do you have trouble paying for medicines?: No Do you have trouble getting transportation to medical appointments?: No Do you have trouble paying your heating and electricity bill?: No Do you have trouble taking care of your child, family member or friend?: No Do you have trouble with day-to-day activities such as bathing, preparing meals, shopping, managing finances, etc.?: No Are you currently unemployed and looking for a job?: No Are you interested in more education?: No Please select the resources that you would like help with: None Currently or been in a relationship where the following occur: No concerns reported THRIVE Score: 0 MARY-7 AMB Questionnaire MARY-7 Date MARY - 7 assessed: 03/02/24 Source: Developed by Drs. Dano Disa, Radha Mitchell, Sergey Pereyra and colleagues, with an educational xander from [employer]. Physical exam (Primary Care) Vital Signs: Last Vital Signs Temp 98.1 F 04/07/25 09:52 Pulse 76 04/07/25 09:52 Resp 16 04/07/25 09:52 BP 136/74 04/07/25 09:52 Pulse Ox 96 04/07/25 09:52 Oxygen Delivery Method Room Air 04/07/25 09:52 BMI result Body Mass Index 47.1 Tobacco/Smoking Status: Tobacco use Status Tobacco use date assessed 04/07/25 04/07/25 09:56 Patient Tobacco Use Status Never used Tobacco 04/07/25 09:56 e-Cigarette/Vaping Use Never Used 04/07/25 09:56 Thrive Assessment: Date of Thrive Assessment Date Thrive assessed 08/18/24 04/07/25 09:56 Currently or been in a relationship where the following occur: No concerns reported Coding Level of Care Code Est Pt Level 3 (55561) Complex EM visit Add On G2211 Diagnoses Hospital discharge follow-up Z09 Visit for suture removal Z48.02 Assessment & Plan Assessment & Plan (1) Hospital discharge follow-up: Code(s): Z09 - Encounter for follow-up examination after completed treatment for conditions other than malignant neoplasm (2) Visit for suture removal: Code(s): Z48.02 - Encounter for removal of sutures Plan .
[2025-04-07 09:52] VITALS: BP 136/74; PULSE 76; RESP 16; TEMP 36.7; O2SAT 96; BMI 47.1
== END 2025-04-07 11:42 | disposition home or self-care (01) ==
LOC: HO.HMCFM 09:45
PROVIDERS: PCP Physician Assistant; Visit Provider Nurse Practitioner Family
DX: Z48.02 Encounter for removal of sutures (principal); Z09 Encounter for follow-up examination after completed treatment for conditions other than malignant neoplasm

== ENCOUNTER → 2025-04-07 09:44 | Outpatient (BNVA) | payer OTHER, SELFPAY | PROVIDERS: PCP Physician Assistant; Visit Provider Nurse Practitioner Family | DX: S81.812D Laceration without foreign body, left lower leg, subsequent encounter (principal); W26.8XXD Contact with other sharp object(s), not elsewhere classified, subsequent encounter; Z48.02 Encounter for removal of sutures | CPT/HCPCS: 99212 ==

== ENCOUNTER 2025-05-10 09:24 | Outpatient (AMB) | payer OTHER, SELFPAY ==
--- NOTE | 2025-05-10 09:28 | MHC.PC.OV ---
Vital Signs 05/10/25 09:39 Weight 336 lb 8 oz BP 130/74 Blood Pressure Location Rt brachial Position Sitting Respiration 14 Pulse 77 Pulse Source Pulse Oximeter Pulse Oximetry (%) 97 Oxygen Delivery Method Room Air Intake Visit Reasons: Paperwork /physician statement Intake Note: Physician statement Country Sales Manager Required: No Allergies naproxen Allergy (Severe, Verified 05/10/25 09:37) Anaphylaxis celecoxib (From Celebrex) Allergy (Intermediate, Verified 05/10/25 09:37) Swelling Medication List - Last Reconciled 05/10/25 by Farideh Salomon PA-C amoxicillin 2,000 mg (4 x 500 mg) PO ONCE PRN 90 days apixaban (Eliquis) 2.5 mg PO BID 90 days celecoxib (Celebrex) 200 mg PO DAILY cholecalciferol (vitamin D3) 50 mcg PO DAILY 90 days MDD 50 mcg omeprazole 20 mg PO DAILY oxycodone 10 mg PO Q6H 28 days Tobacco use date assessed: 04/07/25 Dental Screening Dental Screen Date: 04/07/25 HPI Paperwork /physician statement HPI Details Patient is a 60-year-old male who presents today for a follow up. He has a significant past medical history of chronic pain, GERD, prehypertension, chronic anticoagulation, vita on cpap and prediabetes. CV: Blood pressure today in the office is 130/74. He has had his prehypertension and has tried to control it with diet. No chest pain or shortness on breath. Compliant with Eliquis. -He sees his chiropractor every 2 weeks and has his bp checked. Musculoskeletal: He is well managed with his current chronic pain management. He was on celebrex and but had an allergic reaction to this. He is now only on oxycodone for pain. He has been on this prescription and dosage for years. Contract [facility] Neuro: following for vita and on cpap. Endo: His most recent A1c is 6.4. He states he was eating more ice cream. Colonoscopy: He was scheduled at [facility] but canceled. will do cologuard PSA: [facility] Medical History Trigger finger Severe obesity Rotator cuff syndrome Prothrombin gene mutation Prehypertension Prediabetes Paresthesia Osteoarthritis of acromioclavicular joint Obstructive sleep apnea syndrome Obesity Hypercoagulable state Hx of pulmonary embolus H/O deep venous thrombosis Gastroesophageal reflux disease Disorder of rotator cuff Concussion injury of body structure Chronic pain Surgical History Hx of arthroscopy of right knee Hx of eye surgery H/O excision of ganglion cyst Hx of shoulder surgery Hx of total knee replacement Family History Father Hx of CABG Heart attack Brother Peripheral vascular disease Recurrent deep vein thrombosis Social History (Updated 04/07/25 @ 09:52 by Jayne Downey MA) Housing: House Alcohol intake: never Patient Tobacco Use Status: Never used Tobacco e-Cigarette/Vaping Use: Never Used Second Hand Smoke Exposure: No service: No Current occupational status: disabled Current occupational exposures/hazards: No Cognitive needs: No Hearing needs: No Vision needs: Yes (glasses) Questionnaire Thrive Questionnaire Date Thrive assessed: 08/18/24 I am a: Patient What is your living situation today?: I have a steady place to live Within the past 12 months, did the food you bought not last and you didn't have the money to get more?: Never true Within the past 12 months, did you worry whether your food would run out before you got money to buy more?: Never true Do you have trouble paying for medicines?: No Do you have trouble getting transportation to medical appointments?: No Do you have trouble paying your heating and electricity bill?: No Do you have trouble taking care of your child, family member or friend?: No Do you have trouble with day-to-day activities such as bathing, preparing meals, shopping, managing finances, etc.?: No Are you currently unemployed and looking for a job?: No Are you interested in more education?: No Please select the resources that you would like help with: None Currently or been in a relationship where the following occur: No concerns reported THRIVE Score: 0 MARY-7 AMB Questionnaire MARY-7 Date MARY - 7 assessed: 03/02/24 Source: Developed by Drs. Dano Dias, Radha Mitchell, Sergey Pereyra and colleagues, with an educational xander from [employer]. Physical exam (Primary Care) Vital Signs: Last Vital Signs Pulse 77 05/10/25 09:39 Resp 14 05/10/25 09:39 BP 130/74 05/10/25 09:39 Pulse Ox 97 05/10/25 09:39 Oxygen Delivery Method Room Air 05/10/25 09:39 Tobacco/Smoking Status: Tobacco use Status Tobacco use date assessed 04/07/25 05/10/25 09:29 Patient Tobacco Use Status Never used Tobacco 05/10/25 09:29 e-Cigarette/Vaping Use Never Used 05/10/25 09:29 Thrive Assessment: Date of Thrive Assessment Date Thrive assessed 08/18/24 05/10/25 09:29 Currently or been in a relationship where the following occur: No concerns reported Const Orientation/consciousness: patient oriented x3 HENMT Ears: hearing grossly normal bilaterally Neck Thyroid: Thyroid normal Lymphatic: no lymphadenopathy noted Resp Auscultation: clear to auscultation bilaterally Cardio Rate: regular rate Rhythm: regular rhythm Heart sounds: S1 normal heart sound present and S2 normal heart sound present Skin General skin exam: no rashes or lesions noted Neuro General: patient oriented x3, gait normal and no focal motor deficits Coding Level of Care Code Est Pt Level 4 (71268) Complex EM visit Add On G2211 Diagnoses Prehypertension R03.0 Prediabetes R73.03 Chronic pain syndrome G89.4 Chronic pain type: chronic pain syndrome Assessment & Plan Assessment & Plan (1) Prehypertension: Code(s): R03.0 - Elevated blood-pressure reading, without diagnosis of hypertension Category: Medical Plan: We will continue to monitor (2) Prediabetes: Code(s): R73.03 - Prediabetes Category: Medical Plan: A1c ordered. He is working on weight loss (3) Chronic pain: Code(s): G89.29 - Other chronic pain Category: Medical Qualifiers: Chronic pain type: chronic pain syndrome Qualified Code(s): G89.4 - Chronic pain syndrome Plan: Currently well managed
[2025-05-10 09:39] VITALS: BP 130/74; PULSE 77; RESP 14; O2SAT 97
== END 2025-05-10 10:57 | disposition home or self-care (01) ==
LOC: HO.HMCFM 09:25
PROVIDERS: PCP Physician Assistant; Visit Provider Physician Assistant
DX: R03.0 Elevated blood-pressure reading, without diagnosis of hypertension (principal); R73.03 Prediabetes; G89.4 Chronic pain syndrome

== ENCOUNTER → 2025-05-10 09:24 | Outpatient (BNVA) | payer OTHER, SELFPAY | PROVIDERS: PCP Physician Assistant; Visit Provider Physician Assistant | DX: G89.4 Chronic pain syndrome (principal); K21.9 Gastro-esophageal reflux disease without esophagitis; G47.33 Obstructive sleep apnea (adult) (pediatric); R03.0 Elevated blood-pressure reading, without diagnosis of hypertension; R73.03 Prediabetes; Z79.01 Long term (current) use of anticoagulants; Z99.89 Dependence on other enabling machines and devices | CPT/HCPCS: 99212 ==

== ENCOUNTER 2025-06-22 09:49 | Outpatient (REF) | payer OTHER, SELFPAY ==
[2025-06-22 11:29] LABS: MANUAL DIFF FLAG NO
[2025-06-22 11:35] LABS: Hematocrit 46.2 % (42.0-52.0); Hemoglobin 15.4 g/dl (14.0-18.0); Imm Gran Abs Auto 0.08 X10*3/uL (0.00-0.03); Imm Gran Pct Auto 0.7 % (0.0-0.4); Lymphocytes Absolute Auto 1.6 X10*3/uL (1.2-4.9); Mean Corpuscular HGB Conc 33.3 g/dl (31.0-36.0); Mean Corpuscular Hemoglobin 28.6 pg (27.0-33.0); Mean Corpuscular Volume 85.7 fL (80.0-98.0); NRBC Abs Auto 0.000 X10*3/uL (0.0-0.012); NRBC Pct Auto 0.0 /100WBC (0.0-0.2); Platelet Count 243 X10*3/uL (160-400); Red Blood Count 5.39 X10*6/uL (4.60-5.80); White Blood Count 11.1 X10*3/uL (4.8-10.8)
[2025-06-22 15:16] LABS: Alanine Aminotransferase 36 U/L (0-40); Albumin Level 4.1 g/dL (3.5-5.0); Alkaline Phosphatase 68 U/L (39-117); Anion Gap 11 (12-20); Aspartate Amino Transferase 25 U/L (5-37); Blood Urea Nitrogen 17 mg/dL (9-16); Calcium 9.0 mg/dL (8.4-10.2); Carbon Dioxide 27 mmol/L (22-29); Chloride 106 mmol/L (96-108); Estimated Glomerular Filt Rate > 60; Potassium 4.1 mmol/L (3.3-5.1); Sodium 140 mmol/L (135-145); Total Protein 6.5 g/dL (6.5-8.0)
== END 2025-06-22 09:50 | disposition home or self-care (01) ==
LOC: HO.WFDLDS 09:49
PROVIDERS: Visit Provider Physician Assistant
DX: Z01.89 Encounter for other specified special examinations (principal); R03.0 Elevated blood-pressure reading, without diagnosis of hypertension; R73.03 Prediabetes; E55.9 Vitamin D deficiency, unspecified; G89.4 Chronic pain syndrome; Z12.5 Encounter for screening for malignant neoplasm of prostate
CPT/HCPCS: 36415; 80053; 83036; 84153; 85025

== ENCOUNTER 2025-06-28 09:29 | Outpatient (AMB) | payer OTHER, SELFPAY ==
[2025-06-28 09:32] VITALS: BP 128/74; PULSE 82; RESP 16; O2SAT 98; BMI 45.8
--- NOTE | 2025-06-28 09:32 | MHC.PC.OV ---
Vital Signs 06/28/25 09:32 Height 5 ft 11 in Weight 328 lb 2 oz BMI 45.8 BP 128/74 Blood Pressure Location Rt brachial Respiration 16 Pulse 82 Pulse Source Pulse Oximeter Pulse Oximetry (%) 98 Oxygen Delivery Method Room Air Intake Visit Reasons: meds and labs Intake Note: Follow up. Having carpal tunnel surgery 07/11/2025 on left hand. Special Certificate Dictator Required: No Allergies naproxen Allergy (Severe, Verified 06/28/25 09:34) Anaphylaxis celecoxib (From Celebrex) Allergy (Intermediate, Verified 06/28/25 09:34) Swelling Medication List - Last Reconciled 06/28/25 by Farideh Salomon PA-C amoxicillin 2,000 mg (4 x 500 mg) PO ONCE PRN 90 days apixaban (Eliquis) 2.5 mg PO BID 90 days cholecalciferol (vitamin D3) 50 mcg PO DAILY 90 days MDD 50 mcg omeprazole 20 mg PO DAILY oxycodone 10 mg PO Q6H 28 days Tobacco use date assessed: 04/07/25 Dental Screening Dental Screen Date: 04/07/25 HPI meds and labs HPI Details Patient is a 60-year-old male who presents today for a follow up. He has a significant past medical history of chronic pain, GERD, prehypertension, chronic anticoagulation, royal on cpap and prediabetes. CV: Blood pressure today in the office is 128/74. He has had his prehypertension and has tried to control it with diet. No chest pain or shortness on breath. Compliant with Eliquis. -He sees his chiropractor every 2 weeks and has his bp checked. Musculoskeletal: He is well managed with his current chronic pain management. He was on celebrex and but had an allergic reaction to this. He is now only on oxycodone for pain. He has been on this prescription and dosage for years. Contract [facility] Neuro: following for royal and on cpap. Endo: His most recent A1c is 7.7. A few months ago it was 6.4. He states that he was on a couple of rounds of steroids and believes that that caused his blood sugars to be very high. States that it is not normally like that id he does not truly believe the A1c being that elevated. We did discuss that it does measure the blood sugar over the course of 3 months. He is working hard on diet and lifestyle modifications. Denies any polyuria or polydipsia. States that he would be comfortable checking his blood sugars at home. His blood sugar today in the office is 143. He had a protein shake this morning and coffee. PSA: [facility] Medical History (Updated 06/28/25 @ 09:44 by Farideh Salomon PA-C) Trigger finger Severe obesity Rotator cuff syndrome Prothrombin gene mutation Prehypertension Prediabetes Paresthesia Osteoarthritis of acromioclavicular joint Obstructive sleep apnea syndrome Obesity Hypercoagulable state Hx of pulmonary embolus H/O deep venous thrombosis Gastroesophageal reflux disease Disorder of rotator cuff Concussion injury of body structure Chronic pain Surgical History Hx of arthroscopy of right knee Hx of eye surgery H/O excision of ganglion cyst Hx of shoulder surgery Hx of total knee replacement Family History Father Hx of CABG Heart attack Brother Peripheral vascular disease Recurrent deep vein thrombosis Social History (Updated 04/07/25 @ 09:52 by Jayne Downey MA) Housing: House Alcohol intake: never Patient Tobacco Use Status: Never used Tobacco e-Cigarette/Vaping Use: Never Used Second Hand Smoke Exposure: No service: No Current occupational status: disabled Current occupational exposures/hazards: No Cognitive needs: No Hearing needs: No Vision needs: Yes (glasses) Questionnaire Thrive Questionnaire Date Thrive assessed: 08/18/24 I am a: Patient What is your living situation today?: I have a steady place to live Within the past 12 months, did the food you bought not last and you didn't have the money to get more?: Never true Within the past 12 months, did you worry whether your food would run out before you got money to buy more?: Never true Do you have trouble paying for medicines?: No Do you have trouble getting transportation to medical appointments?: No Do you have trouble paying your heating and electricity bill?: No Do you have trouble taking care of your child, family member or friend?: No Do you have trouble with day-to-day activities such as bathing, preparing meals, shopping, managing finances, etc.?: No Are you currently unemployed and looking for a job?: No Are you interested in more education?: No Please select the resources that you would like help with: None Currently or been in a relationship where the following occur: No concerns reported THRIVE Score: 0 MARY-7 AMB Questionnaire MARY-7 Date MARY - 7 assessed: 03/02/24 Source: Developed by Drs. Dano Dias, Radha Mitchell, Sergey Pereyra and colleagues, with an educational xander from [employer]. Physical exam (Primary Care) Vital Signs: Last Vital Signs Pulse 82 06/28/25 09:32 Resp 16 06/28/25 09:32 BP 128/74 06/28/25 09:32 Pulse Ox 98 06/28/25 09:32 Oxygen Delivery Method Room Air 06/28/25 09:32 BMI result Body Mass Index 45.8 Tobacco/Smoking Status: Tobacco use Status Tobacco use date assessed 04/07/25 06/28/25 09:37 Patient Tobacco Use Status Never used Tobacco 06/28/25 09:37 e-Cigarette/Vaping Use Never Used 06/28/25 09:37 Thrive Assessment: Date of Thrive Assessment Date Thrive assessed 08/18/24 06/28/25 09:37 Currently or been in a relationship where the following occur: No concerns reported Const Orientation/consciousness: patient oriented x3 HENMT Ears: hearing grossly normal bilaterally Neck Thyroid: Thyroid normal Lymphatic: no lymphadenopathy noted Resp Auscultation: clear to auscultation bilaterally Cardio Rate: regular rate Rhythm: regular rhythm Heart sounds: S1 normal heart sound present and S2 normal heart sound present GI Inspection: Yes normal to inspection Palpation (GI): Soft to palpation and Other GI palpation findings present (nontender, no cva tenderness) Auscultation: normoactive bowel sounds Rectal Exam - Male: Yes deferred Skin General skin exam: no rashes or lesions noted Neuro General: patient oriented x3, gait normal and no focal motor deficits Coding Level of Care Code Est Pt Level 4 (55981) Complex EM visit Add On G2211 Diagnoses Uncontrolled type 2 diabetes mellitus with hyperglycemia, without long-term current use of insulin E11.65 ROYAL on CPAP G47.33 Prehypertension R03.0 Assessment & Plan Assessment & Plan (1) Uncontrolled type 2 diabetes mellitus with hyperglycemia, without long-term current use of insulin: Code(s): E11.65 - Type 2 diabetes mellitus with hyperglycemia Category: Medical Plan: We discussed the pathophysiology of diabetes, complications associated with uncontrolled diabetes including but not limited to kidney disease, blindness, amputations, increased risk of a stroke and heart attack. Initially he was resistant to starting medication but tells me he would try something like a GLP 1. We will start with Trulicity. We discussed risks and benefits and adverse effects of this medication including nausea, vomiting, diarrhea, constipation etc.. He will let me know if he develops any adverse effects. He is not have any contraindications to starting this medication. bs 143 today in the office. Reviewed how to fingerstick Testing supplies ordered Diet reviewed Short term follow up in 1 month. Sooner if needed. Blood work prior to appointment. Patient understands and agrees with this plan (2) ROYAL on CPAP: Code(s): G47.33 - Obstructive sleep apnea (adult) (pediatric) Category: Medical Plan: compliant (3) Prehypertension: Code(s): R03.0 - Elevated blood-pressure reading, without diagnosis of hypertension Category: Medical Plan: wnl continue monitoring Orders: Orders Complete Blood Count Auto Diff Today E11.65 - Type 2 diabetes mellitus with hyperglycemia, G47.33 - Obstructive sleep apnea (adult) (pediatric), R03.0 - Elevated blood-pressure reading, without diagnosis of hypertension Comprehensive [place]. Panel Fast Today E11.65 - Type 2 diabetes mellitus with hyperglycemia, G47.33 - Obstructive sleep apnea (adult) (pediatric), R03.0 - Elevated blood-pressure reading, without diagnosis of hypertension Medications: New blood sugar diagnostic (FreeStyle Lite Strips) Use daily As directed to check blood glucose 100 ea 3RF E11.9 - Type 2 diabetes mellitus without complications blood-glucose meter (FreeStyle Lite Meter kit) Use daily As directed to check blood sugars 1 ea 0RF E11.65 - Type 2 diabetes mellitus with hyperglycemia lancets (FreeStyle Lancets) use daily as directed to check blood glucose 100 ea 3RF E11.65 - Type 2 diabetes mellitus with hyperglycemia dulaglutide (Trulicity) 0.75 mg (0.5 mL) subcut QWEEK 2 mL 2RF
== END 2025-06-28 09:58 | disposition home or self-care (01) ==
LOC: HO.HMCFM 09:29
PROVIDERS: PCP Physician Assistant; Visit Provider Physician Assistant
DX: E11.65 Type 2 diabetes mellitus with hyperglycemia (principal); G47.33 Obstructive sleep apnea (adult) (pediatric); R03.0 Elevated blood-pressure reading, without diagnosis of hypertension

== ENCOUNTER → 2025-06-28 09:29 | Outpatient (BNVA) | payer OTHER, SELFPAY | PROVIDERS: PCP Physician Assistant; Visit Provider Physician Assistant | DX: E11.65 Type 2 diabetes mellitus with hyperglycemia (principal); G47.33 Obstructive sleep apnea (adult) (pediatric); R03.0 Elevated blood-pressure reading, without diagnosis of hypertension | CPT/HCPCS: 99212 ==